=== PATIENT | male | born 1960 | race Caucasian/White ===

== ENCOUNTER 2024-11-21 21:08 | Inpatient (IN) | payer MEDICARE, SELFPAY ==
[2024-11-21] VITALS (9 sets, daily range): BP systolic 102–137; BP diastolic 47–67; BMI 26.2; BMI 26.3
--- NOTE | 2024-11-21 16:15 | EDRN ---
Dr. Quiroga in room w/ pt at this time.
--- NOTE | 2024-11-21 16:20 | ED.GENMED ---
History of Present Illness
General
Chief Complaint: Abdominal Symptoms
Source: patient
Exam Limitations: none
Time Seen by Provider: 11/21/24 15:56
Nursing documentation reviewed up to this point in time: agreed with
History of Present Illness
History of Present Illness:
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
abdominal x-ray. Patient reports for the last 4 to 5 days, he has had difficulty keeping down liquids and solids and has had increasing abdominal distention and pain in his upper abdomen. The patient reports that he believes the x-ray shows a
possible obstruction. Additionally, the patient reports he has been unable to really eat and drink for a week and believes he is dehydrated. Patient reports he last had chemotherapy 1 week ago. The patient reports that despite taking lactulose
and magnesium citrate, he has had difficulties having a bowel movement. He reports he last had a bowel movement 3 days ago.
Past History
Past History
ED Past Medical History: CAD and Cancer (Stage IV lung cancer)
ED Past Surgical History: Cardiac and Other (Right iliac stent)
Social History
Tobacco: Other
Alcohol: Other
Drug: None
Personal: Single
Living: with family
Employment: Other
Family History
Family History: Other
Review of Systems
Review of Systems
Allergies reviewed?: Yes
All Other Systems: ROS reviewed and negative except as documented in HPI and ROS
Constitutional: Reports fatigue
EENT: Reports no symptoms
Respiratory: Reports no symptoms
Cardiac: Reports no symptoms
ABD/GI: Reports abdominal pain, nausea, constipated and anorexia
: Reports no symptoms
Musculoskeletal: Reports no symptoms
Skin: Reports no symptoms
Neurological: Reports no symptoms
Endocrine: Reports no symptoms
Hematologic/Lymphatic: Reports no symptoms
Psychiatric: Reports no symptoms
Phy Exam
Physical Exam
Physical Exam:
Physical Exam
General: no apparent distress, not acutely ill
Neck: supple. no meningeal signs. normal psoterior pharynx
Heart: s1/s2 regular rate and rhythm, murmur. equal radial pulses.
Lungs: no acute respiratory distress. clear bilaterally
Abdomen: Distended with diminished bowel sounds. Epigastric and right upper abdominal tenderness. No pulsatile mass. No rebound or guarding
Neuro: alert and oriented. no focal neurological deficits
Skin: no rash
Psychiatric: well kept. interactive and cooperative
Extremities: no edema. no calf tenderness. negative homans. good distal pulses
Course
Orders/Labs/Results
Orders:
Orders
11/21/24 16:19
0.9% Sodium Chloride 1000 ml [Nss] 1,000 ml IV BOLUS
11/21/24 16:52
Complete Blood Count/With Diff Urgent
Comprehensive Metabolic Panel Urgent
Lipase Urgent
11/21/24 17:50
CT Abd/pel Without Iv Or Oral Urgent
Comment:
Reason For Exam: upper abdominal pain, constipation
Abnormal Lab Results
11/21/24
16:52
WBC 0.5 L* 10^3/uL
(4.8-10.8)
RBC 3.39 L 10^6/uL
(4.70-6.10)
Hgb 10.7 L g/dL
(13.0-18.0)
Hct 29.9 L %
(39.0-52.0)
MCH 31.6 H pg
(27.0-31.0)
RDW 15.0 H %
(11.5-14.5)
Plt Count 13 L* 10^3/uL
(130-400)
Absolute Neuts (auto) 0.3 L* 10^3/uL
(1.4-6.5)
Absolute Lymphs (auto) 0.1 L 10^3/uL
(1.2-3.4)
Immature Gran % 6.1 H %
(0-0.5)
Monocytes % 10.2 H %
(1.7-9.3)
Sodium 127 L mmol/L
(135-145)
Potassium 5.5 H mmol/L
(3.5-5.1)
Carbon Dioxide 18 L mmol/L
(22-30)
BUN 123 H* mg/dl
(9-20)
Creatinine 3.0 H mg/dL
(0.7-1.3)
Glucose 152 H mg/dl
(70-99)
Calcium 8.2 L mg/dl
(8.4-10.2)
Total Bilirubin 6.6 H mg/dl
(0.2-1.3)
ALT 127 H U/L
(0-50)
Total Protein 5.7 L g/dl
(6.3-8.2)
11/21/24 16:52
11/21/24 16:52
Vital Signs
Initial and Last Documented VS:
Initial Vital Signs
Temp Pulse Resp BP Pulse Ox
97.6 F 77 16 137/62 97
11/21/24 15:13 11/21/24 15:13 11/21/24 15:13 11/21/24 15:13 11/21/24 15:13
Last Documented Vital Signs
Temp Pulse Resp BP Pulse Ox
97.6 F 78 16 117/53 93
11/21/24 15:13 11/21/24 19:15 11/21/24 19:15 11/21/24 19:15 11/21/24 19:16
MDM/Problems Addressed
Differential Diagnosis Includes:
Partial bowel obstruction, complete bowel obstruction, acute cholecystitis, acute pancreatitis, acute hyponatremia
MDM/Problems Addressed:
Patient presents with acute constipation and abdominal pain
Chronic conditions affecting care:
History of stage IV liver cancer
Acute Exacerbation and/or Progression of Chronic Illness:
Patient may have acute bowel obstruction due to worsening mets in abdomen due to lung cancer
Acute Exacerbation and/or Progression of Chronic Illness: Cancer
*Radiology
Radiology exam reviewed: radiology read reviewed
*Pulse Oximetry
Patient hypoxic: no
*EKG
Interpreted by ED Provider?: NA
*Maritime Guard Interpretation
Rate: Maritime Guard- N/A
*Critical Care Note
Total Time (30-74mins, 75-104mins- exclusive of procedures): Not Applicable
Data Reviewed
Source: patient and family (Niece who is at the bedside)
Patient Management
Social determinants of health affecting care: Living situation and Strong social support
Discussion with other providers: Hospitalist
ED Attending Note
-
Portions of this chart may have been created with voice recognition software.� Occasional wrong word or��sound alike� substitutions may have occurred due to the inherent limitations of voice recognition software.
Discharge Plan
Departure
Patient Disposition: Admit
Date of Disposition: 11/21/24
Time of Disposition: 19:50
Admit to: Med/Surg
Presentation/result/management discussed w/ accepting MD/DO: Hospitalist
Patient with high blood pressure during this ER visit?: Yes
Condition: Fair
Covid-19: Not Applicable
Discharge Problem:
Acute upper abdominal pain, Acute dehydration, Acute hyponatremia, Acute neutropenia
Prescriptions:
No Action
metoprolol succinate [Toprol XL] 50 mg Tablet Extended Release 24 Hr
50 mg PO BID
prochlorperazine maleate [Compazine] 10 mg Tablet
10 mg PO BIDPRN PRN (Reason: nausea)
aspirin 81 mg Tablet,Delayed Release (Dr/Ec)
81 mg PO DAILY
levothyroxine [Synthroid] 75 mcg Tablet
75 mcg PO DAILY
lorazepam 0.5 mg Tablet
0.5 mg PO BIDPRN PRN (Reason: ANIXETY)
Patient Comments:
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
amlodipine [Norvasc] 10 mg Tablet
10 mg PO QPM
dexamethasone 4 mg Tablet
4 mg PO DIRECTED
Rx Instructions:
STARTING THE DAY OF TREATMENT TAKE 8MG AND THE NEXT 4 DAYS AFTER TREATMENT
ezetimibe [Zetia] 10 mg Tablet
10 mg PO DAILY
lactulose 10 gram/15 mL Solution
20 g PO QPM
Brilinta 60 mg Tablet
60 mg PO BID
magnesium oxide 400 mg magnesium Tablet
400 mg PO DAILY
Referrals:
Jose R Garcia Jr., DO [Family Provider] -
Interventions
Interventions:
*Risk Screen - Suicide Last Done: 11/21/24 16:30
*General Assessment Last Done: 11/21/24 16:27
*Neglect/Abuse Screening Last Done: 11/21/24 16:30
*ED- Fall Risk Assessment Last Done: 11/21/24 16:27
*ED COVID-19 Vaccine History Last Done: 11/21/24 16:27
ZS-[id number]-Vuaewmrqxu Assessment Last Done: 11/21/24 17:11
Discharge Date and Time
Print Language: ALGERIAN
--- NOTE | 2024-11-21 16:42 | EDRN ---
Vat MAINTENANCE MAN paged to access port and draw bloods from that. Port is a power port. Pt has a ID port band on wrist that says its a power port.
[2024-11-21] MEDS: NSS 1000 IV (16:53)
--- NOTE | 2024-11-21 17:13 | EDRN ---
R ACW port accessed by IV VAT RN MIN. Port is power port. Bloods drawn and sent.
[2024-11-21 17:28] LABS: ALT (SGPT) 127 U/L (0-50); AST (SGOT) 58 U/L (17-59); Albumin 3.5 g/dl (3.5-5.0); Alkaline Phosphatase 93 U/L (38-126); Calcium 8.2 mg/dl (8.4-10.2); Carbon Dioxide 18 mmol/L (22-30); Chloride 99 mmol/L (98-107); Estimated Creatinine Clearance 23 ml/min; Glucose 152 mg/dl (70-99); Lipase 222 U/L (23-300); Potassium 5.5 mmol/L (3.5-5.1); Sodium 127 mmol/L (135-145); Total Bilirubin 6.6 mg/dl (0.2-1.3); Total Protein 5.7 g/dl (6.3-8.2); eGFR 22.35
[2024-11-21 17:37] LABS: Blood Urea Nitrogen 123 mg/dl (9-20)
[2024-11-21 17:38] LABS: % Immature Granulocytes 6.1 % (0-0.5); % Lymphocytes 28.6 % (20.5-51.1); % Monocytes 10.2 % (1.7-9.3); % Neutrophils 51.1 % (42.2-75.2); Absolute Lymphocytes 0.1 10^3/uL (1.2-3.4); Absolute Monocytes 0.1 10^3/uL (0.1-0.6); Absolute Neutrophils 0.3 10^3/uL (1.4-6.5); Hematocrit 29.9 % (39.0-52.0); Hemoglobin 10.7 g/dL (13.0-18.0); Mean Corp Hgb Conc. 35.8 g/dL (33.0-37.0); Mean Corpuscular Hgb 31.6 pg (27.0-31.0); Mean Corpuscular Volume 88.2 fL (80.0-94.0); Mean Platelet Volume 9.9 fL (7.4-10.4); Nucleated Red Blood Cells % 0 % (-); Platelet Count 13 10^3/uL (130-400); Red Blood Cell Count 3.39 10^6/uL (4.70-6.10); White Blood Cell Count 0.5 10^3/uL (4.8-10.8)
--- NOTE | 2024-11-21 20:06 | W.PN.UPDATE ---
Update Note
Progress Note Update
Patient seen and condition with GUEST SERVICES AGENT, I agree with the findings and history and physical and I concur with assessment and plan.
Briefly, this is a 64-year-old with past medical history of CAD status post stenting, peripheral arterial disease, hypertension, stage IV metastatic lung cancer with significant distant mets who presents to the emergency department after patient
evaluation showed abnormal blood walk and x-ray concerning for bowel obstruction.
Patient reports several days of inability to tolerate p.o. since last chemo. He reports epigastric pain with any oral intake and has been avoiding foods and liquids. Nausea but no vomiting. Feels constipated and has tried laxatives with one BM.
Reports increased abdominal distention with right upper quadrant abdominal pain. He denies any diarrhea. Patient reports his last chemo was 1 week ago. Denies dysphagia. Denies melena.
Reports chronically elevated bilirubin.
In the Emergency Department he was afebrile, blood pressure was 117/50 with a pulse of 78 and satting 93% on room air. White count was 0.5, hemoglobin was 10.7 and platelet was 13, his sodium was 127 potassium 5.5 bicarb 18, BUN 123 and creatinine
3.0 with a glucose of 152. Total bilirubin was 6.6, ALT 127, alkaline phosphatase and AST was normal. CT a/p w/o contrast showing severe multifocal hepatic metastatic disease, large amount of metastatic right upper quadrant lymphadenopathy,
gallbladder with cholelithiasis and large amount of biliary sludge, no ductal dilation.
Patient presentation w/ epigasatric pain, negative lipase suggests gastritis/dyspepsia possibly chemotherapy induced mucositis. No evidence of bowel obstruction on the CT scan. However picture is limited by lack of contrast. Overall with a BUN
of 193 and a creatinine of 3.0 patient appears to have significant prerenal azotemia. The sodium of 127 reflects hypovolemic hyponatremia given this degree of azotemia.
Abdominal pain - epigastric pain with epigastric tenderness suggests gastritis/dyspepsia more likely. No RUQ discomfort.
- Admit to medsurg
- pain control, IV ppi bid for now and antiemetics
- advance diet as tolerated for now
- trend lfts
Hyponatremia - Hypovolemic hyponatremia suspected. Cannot rule out SIADH. He needs volume resuscitation now.
- bolus with 1 L LR, and 1 L NS
- then IV dextrose 1/2 NS + 75 bicarb at 125 ml/hr afterwards
- follow i/os
- check urine osm and urine sodium
- repeat labs in 6 hours
- consider nephrology consult if no improvement
BESSIE - suspect pre-renal azotemia on some baseline CKD. No urinary obstruction on imaging. Although significant thrombocytopenia, no h/o melena to explain elevated bun
- avoid nephrotoxins
- orthostatics
- fluid resuscitation as above
- continue amlodipine unless orthostatic
- occult stool testing
- ppi ppx as above
Pancytopenia - neutropenia and thrombocytopenia. Recent chemo 1 week ago.
- neutropenic precautions
- no evidence of mucosal or internal bleeding, type and screen but no plt transfusion required
- oncology consultation
DVT PPX - SCDs for now given severe thrombocytopenia
Code status - full code
--- NOTE | 2024-11-21 20:46 | HPS.HSE ---
Family Physician
-
Family Physician: Jose R Garcia
Chief Complaint
-
Epigastric Abdominal Pain
History of Present Illness
Patient is a 64 y/o male past medical history of metastatic lung cancer, ASCVD, hypertension and hypothyroidism who presents with epigastric abdominal pain. Patient reports very poor oral intake due to worsening epigastric pain. He reports only
tolerating a small amount of liquids. Niece at bedside notes increase belching and bloating. Patient reports limited bowel movements and expresses concern about possibly bowel obstruction. He denies fevers, sweats or chills.
Medical History
Past Medical History
Past Medical History: Reports Other
Additional Past Medical History:
Metastatic Lung Cancer (Liver and Bone)
Coronary Artery Disease s/p Cardiac Stent
Peripheral Arterial Disease s/p Right Iliac Stent
Essential Hypertension
Hyperlipidemia
Hypothyroidism
Leukemia
Past Surgical History: Reports None
Social History
Tobacco: Former Smoker
Alcohol: None
Living: Other (Patient is currently staying with his niece in [place])
Family History
Family History: Not pertinent
Allergies / Home Medications
Allergies reflects when Allergies were last updated in [facility].
Home Medications with original date entered in [facility]
Allergy/Medication List:
Allergies
Allergy/AdvReac Type Severity Reaction Status Date / Time
No Known Allergies Allergy Verified 11/21/24 15:20
Home Medications
amlodipine 10 mg tablet (Norvasc) 10 mg PO QPM 11/21/24
aspirin 81 mg tablet,delayed release 81 mg PO DAILY 11/21/24
dexamethasone 4 mg tablet 4 mg PO DIRECTED 11/21/24
ezetimibe 10 mg tablet (Zetia) 10 mg PO DAILY 11/21/24
lactulose 10 gram/15 mL oral solution 20 g PO QPM 11/21/24
levothyroxine 75 mcg tablet (Synthroid) 75 mcg PO DAILY 11/21/24
lorazepam 0.5 mg tablet 0.5 mg PO BIDPRN PRN ANIXETY 11/21/24
magnesium oxide 400 mg PO DAILY 11/21/24
metoprolol succinate 50 mg tablet,extended release 24 hr (Toprol XL) 50 mg PO BID 11/21/24
prochlorperazine maleate 10 mg tablet (Compazine) 10 mg PO BIDPRN PRN nausea 11/21/24
ticagrelor 60 mg tablet (Brilinta) 60 mg PO BID 11/21/24
Review of Systems
-
A 12 point ROS was completed and negative except as noted: Yes
Constitutional: Denies Fever
Respiratory: Denies Cough or Trouble Breathing
Cardiac: Denies Chest Pain or Palpitations
Abdomen/GI: Reports See HPI
Physical Exam
Vital Signs
Vital Signs
Temp Pulse Resp BP Pulse Ox
97.6 F 78 16 117/53 93
11/21/24 15:13 11/21/24 19:15 11/21/24 19:15 11/21/24 19:15 11/21/24 19:16
Physical Exam
General: Well Developed, Comfortable and Conversant
HEENT: NormoCephalic, Anicteric and Atraumatic
Respiratory: Clear and Non Labored Respirations
Cardiac: S1/S2, Regular Rhythm and Murmur
GI: Soft, Tender (Epigastric regions without rebound or guarding) and Other (Protuberant; Hepatomegaly)
Rectal: Deferred by Provider
Musculoskeletal: No Clubbing and No Cyanosis
Skin: Warm and Dry
Neuro: Awake, Alert, Oriented and Nonfocal/grossly intact
Psych: Calm
Laboratory Results
-
11/21/24 16:52
11/21/24 16:52
Laboratory Results
Total Bilirubin 6.6 mg/dl (0.2-1.3) H 04/25/25 16:52
AST 58 U/L (17-59) 11/21/24 16:52
ALT 127 U/L (0-50) H 11/21/24 16:52
Alkaline Phosphatase 93 U/L (38-126) 11/21/24 16:52
Lipase 222 U/L (23-300) 11/21/24 16:52
Data Reviewed
-
CT Scan: Report Reviewed by me
Lab Data: Labs Reviewed by me
Impression/Plan
-
Acute Kidney Injury secondary to poor oral intake
-Continue IVFs
-Recheck labs in AM
Hyponatremia, suspect hypovolemic in setting of poor oral intake, possibly component of SIADH due to lung cancer
-Check urine electrolytes
-Continue IVFs
-Recheck sodium later this evening and in AM
Hyperkalemia
-Patient receiving IVfs
-Recheck potassium later this evening - If remains elevated consider Lokelma
Epigastric Abdominal Pain, possible gastritis
-Add Protonix
-Allow clear liquids - Advance diet as tolerated
Pancytopenia with Neutropenia, and profound Thrombocytopenia
-Consult Oncology
-Continue neutropenic precautions
-Monitor for fevers
-Monitor for bleeding
-Monitor counts closely
Metastatic Lung Cancer (Liver and Bone)
-Last chemotherapy November 14
-Consult Oncology
Coronary Artery Disease s/p Cardiac Stent
Peripheral Arterial Disease s/p Right Iliac Stent
-Continue aspirin and Brilinta
Essential Hypertension
-Continue amlodipine and metoprolol with hold parameters
Hypothyroidism
-Continue Levothyroxine
DVT proph: SCDs
Code Status: Full Code
[2024-11-21] MEDS: LR 1000 IV (20:55)
[2024-11-21 21:34] LABS: Osmolality Serum 317 mOsm/kg (275-300)
[2024-11-21] MEDS: PROTONIX IV 40 MG IV (22:17)
[2024-11-21] MEDS: NSS (PRESERVATIVE FREE) 10 ML IV (22:17)
[2024-11-21] MEDS: SODIUM BICARBONATE 1075 MEQ IV (22:17)
--- NOTE | 2024-11-21 23:59 | PTCARENOTE ---
Pt admitted to [facility] ([id number]) from ED. Pt AAOx3. Port C/D/I, started on IVF and infusing without issues. Pt oriented to room. Call del cid within reach and bed in lowest position.
[2024-11-22 01:14] LABS: Blood Urea Nitrogen 111 mg/dl (9-20); Calcium 7.7 mg/dl (8.4-10.2); Carbon Dioxide 22 mmol/L (22-30); Chloride 104 mmol/L (98-107); Estimated Creatinine Clearance 29 ml/min; Glucose 116 mg/dl (70-99); Potassium 5.5 mmol/L (3.5-5.1); Sodium 130 mmol/L (135-145); eGFR 30.74
[2024-11-22 03:58] LABS: Urine Albumin 1+ (Neg - Trace); Urine Bilirubin Negative (Negative); Urine Character Clear (Clear); Urine Color Yellow; Urine Glucose Negative (Negative); Urine Ketone Negative (Negative); Urine Leukocyte Negative (Negative); Urine Nitrite Negative (Negative); Urine Occult Blood Negative (Negative); Urine Specific Gravity 1.015 (<1.030); Urine Urobilinogen Negative (Neg - 1+)
[2024-11-22 04:00] LABS: Urine Sodium 20 mmol/L (30-90)
[2024-11-22 04:09] LABS: Urine Hyaline Cast 0-2 /LPF (0-2); Urine Red Blood Cell None Seen /HPF (0-2); Urine White Cell 0-2 /HPF (0-5)
[2024-11-22 04:33] LABS: Osmolality Urine 499 mOsm/kg (300-900)
[2024-11-22 06:00] VITALS: BMI 26.9
[2024-11-22 06:22] LABS: Hematocrit 27.6 % (39.0-52.0); Hemoglobin 9.7 g/dL (13.0-18.0); Mean Corp Hgb Conc. 35.1 g/dL (33.0-37.0); Mean Corpuscular Hgb 31.3 pg (27.0-31.0); Platelet Count 10 10^3/uL (130-400); Red Cell Dist. Width 15.2 % (11.5-14.5); White Blood Cell Count 0.3 10^3/uL (4.8-10.8)
[2024-11-22] MEDS: SYNTHROID 75 MCG PO (06:24)
--- NOTE | 2024-11-22 06:29 | CON.ONC ---
Consultation
-
Date Consultation Requested: 11/22/24
Date Consultation Performed: 11/22/24
Requesting Provider: Jammie Knowles
Performing Provider: Reshma
Reason for Consultation: Lung Ca, neutropenia
Impression
Impression
Metastatic SCLC with liver, LN, blastic bone mets
Chemotherapy-induced neutropenia and thrombocytopenia, both severe
BESSIE
Hyponatremia, hypokalemia
Coronary Artery Disease s/p Cardiac Stent
Peripheral Arterial Disease s/p Right Iliac Stent
Plan
Plan
Patient admitted with epigastric pain presumably cancer related although cannot rule out other issues such as gastritis, PUD, etc.
Electrolyte abnormalities possibly combination of dehydration, prerenal azotemia, BESSIE.
Sodium and potassium are improving. Monitor creatinine with hydration.
CT scan reveals pretty extensive metastatic disease burden. CT scan does not unfortunately have comparison as all previous scans done at [facility] and not available.
Regarding low blood counts, this is expected following Zepzelca.
No fever or evidence of infection. No role for antibiotic.
Typically without infection, inpatient G-CSF is not utilized inpatient. I have no way of confirming whether the patient received long-acting G-CSF.
Regarding thrombocytopenia, this does not appear to be causing him any bleeding symptoms but with a platelet count of 10,000 I do recommend platelet transfusion.
This is nonurgent and I will wait for the hospitalist team to schedule this as I saw the patient before getting these results and did not formally get consent.
Continue supportive care, pain control.
Cytopenias themselves are not indication for continued inpatient hospitalization. Once electrolytes and BESSIE are improved, patient can be discharged from Heme Onc perspective.
Prognosis is guarded with what I suspect is small cell lung cancer based on his particular current treatment and typically this is given at least 2nd or 3rd line and based on the burden of his disease seen on CT imaging which seems to be extensive.
Not appropriate for me to have a goals of care conversation currently as we are not primarily his oncology team as symptoms may be treatment related. With that said, he appears to be relatively healthy appearing strong vital signs, and hopefully
his condition will improve after chemotherapy recovery.
He should have goals of care conversations with Dr. Ellis particularly after the CT scan is compared to previous scans at [facility] particularly if he has proven progression of disease based on imaging.
There is [facility] because he is currently staying with his niece he lives in [place]. Typically he lives in [place] and gets his care at [facility] by Dr. Gilma Ellis and her team.
Patient History
History of Present Illness
CC: Epigastric Abdominal Pain
Heme-onc consult for lung cancer and severe cytopenias from chemotherapy
HPI: 64 y/o male follows at [facility] with metastatic small cell lung cancer on Zepzelca (lurbinectedin) last treatment Tuesday 11/14 who presents with epigastric abdominal pain and associated poor oral intake due to worsening epigastric pain. Increase
belching and bloating. Primary oncologist is Gilma Ellis MD but patient sees her BROACHER mostly. He lives in [facility] but is staying with his niece in [place]. He thought all the [facility] records would be available with the hospital ownership
change. No prior imaging for comparison available for comp. No fevers or chills. No history of unexpected bleeding.
Past-Medical/Surgical History
PMH:
Metastatic Lung Cancer small cell with liver and bone mets
Coronary Artery Disease s/p Cardiac Stent
Peripheral Arterial Disease s/p Right Iliac Stent
Essential Hypertension
Hyperlipidemia
Hypothyroidism
Leukemia
Past Surgical History: Reports None
Social History
Tobacco: Former Smoker
Alcohol: None
Living: Other (Patient is currently staying with his niece in [place])
Family History
Patient Medication
�Medication �Instructions �Recorded �Confirmed �Last Taken �Type
amlodipine 10 mg tablet (Norvasc) 10 mg PO QPM 11/21/24 11/21/24 11/19/24 History
aspirin 81 mg tablet,delayed 81 mg PO DAILY 11/21/24 11/21/24 11/20/24 History
release
dexamethasone 4 mg tablet 4 mg PO DIRECTED 11/21/24 11/21/24 Unknown History
ezetimibe 10 mg tablet (Zetia) 10 mg PO DAILY 11/21/24 11/21/24 11/20/24 History
lactulose 10 gram/15 mL oral 20 g PO QPM 11/21/24 11/21/24 11/20/24 History
solution
levothyroxine 75 mcg tablet 75 mcg PO DAILY 11/21/24 11/21/24 11/21/24 History
(Synthroid)
lorazepam 0.5 mg tablet 0.5 mg PO BIDPRN PRN ANIXETY 11/21/24 11/21/24 Unknown History
magnesium oxide 400 mg PO DAILY 11/21/24 11/21/24 11/20/24 History
metoprolol succinate 50 mg 50 mg PO BID 11/21/24 11/21/24 11/20/24 History
tablet,extended release 24 hr
(Toprol XL)
prochlorperazine maleate 10 mg 10 mg PO BIDPRN PRN nausea 11/21/24 11/21/24 Unknown History
tablet (Compazine)
ticagrelor 60 mg tablet (Brilinta) 60 mg PO BID 11/21/24 11/21/24 11/20/24 History
Active Medications
Generic Name Dose Route Start Last Admin
Trade Name Freq PRN Reason Stop Dose Admin
Acetaminophen 650 mg 11/21/24 21:44
Acetaminophen 325 Mg Tablet PO 12/19/24 21:43
Q4HPRN PRN
mild pain/ fever>100.5F
Amlodipine Besylate 10 mg 11/22/24 18:00
Amlodipine 10 Mg Tablet PO 12/20/24 17:59
QPM JUSTICE
Aspirin 81 mg 11/22/24 08:00
Aspirin 81 Mg (Enteric Coated) Tablet PO 12/20/24 07:59
DAILY JUSTICE
Heparin Sodium (Porcine) 500 unit 11/22/24 01:00
Heparin Flush Pf (100 Unit/Ml) 5 Ml Syringe IV 12/20/24 00:59
PER PROTOCOL JUSTICE
Sodium Bicarbonate 75 meq/ 1,075 mls @ 100 mls/hr 11/21/24 21:44 11/21/24 22:17
Sodium Chloride IV 1,075 mls
.[id number] JUSTICE Administration
Lactulose 20 grams 11/22/24 18:00
Lactulose Solution (20 Grams/30 Ml) 30 Ml Cup PO 12/20/24 17:59
QPM JUSTICE
Levothyroxine Sodium 75 mcg 11/22/24 06:00 11/22/24 06:24
Levothyroxine 75 Mcg Tablet PO 12/20/24 05:59 75 mcg
DAILY @ 0600 JUSTICE Administration
Lorazepam 0.5 mg 11/21/24 21:44
Lorazepam 0.5 Mg Tablet PO 12/19/24 21:43
BIDPRN PRN
ANIXETY
Metoprolol Succinate 50 mg 11/22/24 08:00
Metoprolol 50 Mg Extended Release Tablet PO 12/20/24 07:59
BID JUSTICE
Ondansetron HCl 4 mg 11/21/24 21:44
Ondansetron 4 Mg/2 Ml Vial IV 12/19/24 21:43
Q6HPRN PRN
NAUSEA/VOMITING
Pantoprazole Sodium 40 mg 11/21/24 21:44 11/21/24 22:17
Pantoprazole Sodium 40 Mg/10 Ml Vial IV 12/19/24 21:43 40 mg
BID JUSTICE Administration
Sodium Chloride 0 flush 11/21/24 22:00
Sodium Chloride 0.9% (Flush) Syringe IV 12/19/24 21:59
PER PROTOCOL JUSTICE
Sodium Chloride 10 ml 11/21/24 22:00 11/21/24 22:17
Sodium Chloride 0.9% (Preservative Free) 10 Ml Vial IV 12/19/24 21:59 10 ml
BID JUSTICE Administration
Ticagrelor 60 mg 11/22/24 08:00
Ticagrelor (Brilinta) 60 Mg Tablet PO 12/20/24 07:59
BID JUSTICE
Physical Exam
-
General: Well Developed, Well Nourished, No Apparent Distress and Comfortable; Negative Respiratory Distress
HEENT: Negative Jaundice
Cardiology: Normal Sinus Rhythm, S1 and S2
Pulmonary: Clear
GI: Soft
Musculoskeletal: No Clubbing, No Cyanosis and No Edema
Extremities: No C/C/E
Neurology: Non Focal
Skin: Warm
Hematologic / Lymphatic: No Lymphadenopathy
Psych: Calm
Labs
Lab Results
WBC 0.3 10^3/uL (4.8-10.8) L* 11/22/24 06:03
RBC 3.10 10^6/uL (4.70-6.10) L 11/22/24 06:03
Hgb 9.7 g/dL (13.0-18.0) L 11/22/24 06:03
Hct 27.6 % (39.0-52.0) L 11/22/24 06:03
MCV 89.0 fL (80.0-94.0) 11/22/24 06:03
MCH 31.3 pg (27.0-31.0) H 11/22/24 06:03
MCHC 35.1 g/dL (33.0-37.0) 11/22/24 06:03
RDW 15.2 % (11.5-14.5) H 11/22/24 06:03
Plt Count 10 10^3/uL (130-400) L* D 11/22/24 06:03
MPV Not Reportable 11/22/24 06:03
Abs Immat Gran (auto) 0.0 10^3/uL (0-0.05) 11/21/24 16:52
Absolute Neuts (auto) 0.3 10^3/uL (1.4-6.5) L* 11/21/24 16:52
Absolute Lymphs (auto) 0.1 10^3/uL (1.2-3.4) L 11/21/24 16:52
Absolute Monos (auto) 0.1 10^3/uL (0.1-0.6) 11/21/24 16:52
Absolute Eos (auto) 0.0 10^3/uL (0-0.7) 11/21/24 16:52
Absolute Basos (auto) 0.0 10^3/uL (0-0.2) 11/21/24 16:52
Immature Gran % 6.1 % (0-0.5) H 11/21/24 16:52
Neutrophils % 51.1 % (42.2-75.2) 11/21/24 16:52
Lymphocytes % 28.6 % (20.5-51.1) 11/21/24 16:52
Monocytes % 10.2 % (1.7-9.3) H 11/21/24 16:52
Eosinophils % 2.0 % (0-6) 11/21/24 16:52
Basophils % 2.0 % (0-2) 11/21/24 16:52
Creatinine 2.3 mg/dL (0.7-1.3) H 11/22/24 00:47

Patient Name: FELA YOUSSEF
: 1960
Unit Number: [id number]
Age/Sex: 64/M
Patient
Location: [facility]
Order Provider: Melinda Quiroga MD
Exam Service Date: 11/21/24

PROCEDURE: CT Abdomen and Pelvis without IV Contrast
CLINICAL INDICATION: Epigastric upper abdominal pain. Vomiting. Constipation. Leukemia. Metastatic lung cancer. Decreased appetite.
TECHNIQUE: A CT examination of the abdomen and pelvis was performed without intravenous contrast. Oral contrast was not administered. Coronal and sagittal reformatted images were obtained. Automatic exposure control radiation dose reduction
technology was utilized.
COMPARISON: None available.
FINDINGS:
CHEST: The heart is normal in size. There is severe calcific atherosclerotic plaque in the coronary arteries. There is moderate calcific atherosclerotic plaque in the descending thoracic aorta. There is no pericardial effusion. There are no pleural
effusions. There is a 2.2 x 2.4 x 1.4 cm lobular shaped soft tissue mass in the right lateral pericardial fat pad which is likely latha metastatic disease. There is a thick band of scarring or subsegmental atelectasis in the medial segment of the
right middle lobe. There is a minimal amount of subsegmental atelectasis or scarring in the posterior basilar segment of the right lower lobe.
ABDOMEN: There is a small amount of right upper quadrant perihepatic ascites. The right lobe of the liver appears normal in size measuring 16.6 cm in length. There are large number of low-attenuation metastases diffusely distributed throughout the
liver measuring up to 5.9 x 5.9 cm in size in the posterior segment of the right lobe. There is a large amount of metastatic lymphadenopathy in the giorgi hepatis and portacaval regions. There is a moderate amount of metastatic retroperitoneal
lymphadenopathy.
There is no abnormal biliary dilatation. The gallbladder is filled with sludge and cholelithiasis. There is atrophy of the pancreatic tail.
There is very severe calcific atherosclerotic plaque in the abdominal aorta. There is very severe calcific atherosclerotic plaque in the common iliac, external iliac, common femoral arteries. There is greater than 70% diameter stenosis in the left
common iliac artery caused by severe calcific atherosclerotic plaque.
The adrenal glands appear normal. There is mild bilateral renal cortical volume loss. There is no hydronephrosis in either kidney. There is a 1.7 cm cyst exophytic from the posterior cortex of the midpole the right kidney.
There is mild circumferential wall thickening in the distal esophagus. There is a moderate amount of circumferential wall thickening throughout the duodenum and proximal jejunal small bowel loops. There is no pneumoperitoneum.
PELVIS: There is no abnormal small bowel wall thickening or distention. There is no abnormal colonic distention. There is mild circumferential wall thickening throughout the rectum. There is a minimal amount of peritoneal fluid in the paracolic
gutters. There is a small amount of peritoneal fluid in the pelvis.
The prostate gland is mildly enlarged. The seminal vesicles appear normal. The urinary bladder is mildly distended. There is mild diffuse thickening of the wall of the urinary bladder. There is no pelvic lymphadenopathy.
SKELETON: The T12 ribs are hypoplastic. The L5 vertebral segment is sacralized. There are blastic osseous metastases within multiple thoracic and lumbar vertebral bodies, the largest in the T9 and L1 vertebral bodies. There is mild multilevel
discogenic degenerative disease in the lumbar spine. There is moderate right-sided facet joint arthrosis at L4/L5. There is moderate bilateral osteoarthritis of the sacroiliac joints. There is mild bilateral osteoarthritis of the hips. There are
small sclerotic osseous metastases throughout the pelvic bones.
IMPRESSION:
1. SEVERE MULTIFOCAL HEPATIC METASTATIC DISEASE.
2. Large amount of metastatic right upper quadrant lymphadenopathy.
3. Moderate metastatic retroperitoneal lymphadenopathy.
4. Small volume of ascites.
5. Severe calcific atherosclerotic plaque in the abdominal aorta, iliac, and femoral arteries.
6. Mild chronic bilateral renal disease.
7. Mildly enlarged prostate gland.
8. Multifocal blastic osseous metastatic disease.
9. Severe calcific atherosclerotic plaque in the coronary arteries.
10. 2.4 cm latha metastasis in the right pericardial fat pad.
Electronically signed by Nacho Garcia MD, 11/21/2024 7:19 PM
[employer] Dose Report: Up-to-date CT equipment and radiation dose reduction techniques were employed. CTDIvol: 9.9 mGy. DLP: 542 mGy-cm.
Dictated By: Nacho Garcia MD
Dictated Date & Time: 11/21/241905
Signed/Co-Signer By: Nacho Garcia MD /
Signed/Co-Signer Date & Time: 11/21/241918 /
Vital Signs
Vital Signs
Temp Pulse Resp BP Pulse Ox
98.7 F 73 20 107/47 98
11/21/24 23:00 11/21/24 23:00 11/21/24 23:00 11/21/24 23:00 11/21/24 23:00
[2024-11-22 06:31] LABS: ALT (SGPT) 99 U/L (0-50); AST (SGOT) 52 U/L (17-59); Albumin 2.9 g/dl (3.5-5.0); Alkaline Phosphatase 77 U/L (38-126); Blood Urea Nitrogen 106 mg/dl (9-20); Calcium 7.7 mg/dl (8.4-10.2); Carbon Dioxide 23 mmol/L (22-30); Chloride 106 mmol/L (98-107); Direct Bilirubin 4.2 mg/dl (0.0-0.4); Estimated Creatinine Clearance 31 ml/min; Glucose 88 mg/dl (70-99); Magnesium 3.5 mg/dl (1.6-2.3); Potassium 5.2 mmol/L (3.5-5.1); Sodium 134 mmol/L (135-145); Total Bilirubin 6.8 mg/dl (0.2-1.3); eGFR 32.43
[2024-11-22] MEDS: BRILINTA 60 MG PO (08:52)
[2024-11-22] MEDS: TOPROL XL PO (08:52)
[2024-11-22] MEDS: ASPIR LOW (ENTERIC COATED) 81 MG PO (08:52)
[2024-11-22] MEDS: PROTONIX IV 40 MG IV (08:52)
[2024-11-22] MEDS: NSS (PRESERVATIVE FREE) 10 ML IV (08:52)
[2024-11-22] MEDS: SODIUM BICARBONATE 1075 MEQ IV ×2 (08:53→19:38)
[2024-11-22 08:56] VITALS: BP 105/60
--- NOTE | 2024-11-22 12:12 | W.PN.HOSP.TC ---
Today's Communication/Plan
-
Will ask nephrology for input
Platelet transfusion
Continue with neutropenic precaution
Continue fall precaution
Advance to full liquids
Hold antiplatelet agents
Hold PPI
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
Assessment / Plan
Assessment / Plan
Acute Kidney Injury likely multifactorial decreased p.o. intake versus unclear if related to chemotherapy (zepzelca), hypotension
Metabolic acidosis
- Patient creatinine was 1 on 11/14/2024. Creatinine was 2.68 on outpatient lab based on patient portal.
- BUN/creatinine with mild improvement
- No hydronephrosis noted on the CAT scan
- Check urine eosinophils
- Elevated cr is known risk factor w/ zepzelca
- Nephrology input
Hyponatremia, suspect hypovolemic in setting of poor oral intake, possibly component of SIADH due to lung cancer
-Na is improving -134
Hyperkalemia
-downtrending.
Epigastric Abdominal Pain, possible gastritis versus pain related to severe lymphadenopathy
- DC Protonix with severe thrombocytopenia and switch to Pepcid
- Advance to full liquids and monitor. Advance as tolerated.
Pancytopenia with Neutropenia, and profound Thrombocytopenia
-Consult Oncology
-Continue neutropenic precautions
-Monitor for fevers
-Monitor for bleeding
-Monitor counts closely
-Of note patient in the past had severe thrombocytopenia and his antiplatelet agents were held for some period of time. Patient has received blood transfusion and platelet transfusion in the past.
-Will order 1 unit of platelet transfusion
-Fall precautions
Metastatic Lung Cancer (Liver and Bone) likely stage IV
-Last chemotherapy November 14
-Consult Oncology
Coronary Artery Disease s/p Cardiac Stent
Peripheral Arterial Disease s/p Right Iliac Stent
- Hold aspirin and Brilinta as risk outweighs benefits. Per patient last cardiac stent was 5 to 6 years ago
- This was discussed with patient and patient niece who both stated that patient had antiplatelet agent held for quite some time during hospitalization at [facility]. Both agreed and were amenable to holding antiplatelet agents with severe
thrombocytopenia.
Transaminitis and bilirubin elevated likely secondary to malignancy and metastasis
- Monitor labs for now. Currently AO x 3. CT scan with liver metastasis noted. There is also a large amount of metastasis and lymphadenopathy in the giorgi hepatis and portacaval region. There is no abnormal biliary dilatation. Gallbladder is
filled with sludge and cholelithiasis.
Essential Hypertension
-Continue amlodipine and metoprolol with hold parameters
Hypothyroidism
-Continue Levothyroxine
DVT proph: SCDs in the setting of severe thrombocytopenia
Code Status: Full Code
Discussed with patient tammy Guaman over the phone in details. Did offer them transfer to [facility] as patient primary oncologist at [facility] however patient and niece would like to continue care here for now.
Anticipated Discharge: > 48 hours
Subjective/Interval History
-
Date of Service: November 22, 2024
states feeling better compared to yesterday
was able to tolerate some liquid this morning
some epigastric discomfort
Objective Data
-
Labs:
Laboratory Results
11/22/24 11/22/24
00:47 06:03
WBC 0.3 L*
Hgb 9.7 L
Hct 27.6 L
Plt Count 10 L* D
Sodium 130 L 134 L
Potassium 5.5 H 5.2 H
Chloride 104 106
Carbon Dioxide 22 23
BUN 111 H* 106 H*
Creatinine 2.3 H 2.2 H
Glucose 116 H 88
Calcium 7.7 L 7.7 L
Total Bilirubin 6.8 H
AST 52
ALT 99 H
Alkaline Phosphatase 77
Vital Signs:
Vital Signs
Temp Pulse Resp BP Pulse Ox
98.2 F 85 20 105/60 95
11/22/24 08:56 11/22/24 08:56 11/22/24 08:56 11/22/24 08:56 11/22/24 08:56
I&O
11/21/24 11/22/24 11/23/24
06:59 06:59 06:59
Output Total 900 / 900
Balance -900 / -900
Physical Exam
-
General: Well Developed and No Apparent Distress
HEENT: Normocephalic, Atraumatic and Moist Mucous Membranes
Respiratory: Clear to Auscultation
Cardiac: Regular Rhythm and S1/S2; Negative Murmur, Rub or Gallop
GI: Soft, Nontender, Normal Bowel Sounds and Distended; Negative Organomegaly
Rectal: Deferred by Provider
Musculoskeletal: No Clubbing, No Cyanosis and No Edema
Skin: Jaundice; Negative Rash
Neuro: Awake, Alert, Oriented, AO x 3, No Motor Deficits and Nonfocal/Grossly Intact
Psych: Calm
Data Reviewed
-
Total Time Spent with Patient (in minutes): 65
[2024-11-22 12:16] VITALS: BP 109/61
[2024-11-22 12:41] VITALS: BP 109/61
[2024-11-22 13:09] VITALS: BP 111/58
[2024-11-22 13:30] VITALS: BP 98/65
[2024-11-22 13:33] LABS: Iron 217 ug/dl (49-181)
[2024-11-22 13:42] LABS: Percent Saturation 82 % (20-50); Total Iron Binding Capacity 264 ug/dl (261-462)
--- NOTE | 2024-11-22 13:43 | W.CON.NEPH ---
Consultation
-
Date/Time Consultation Requested: 11/22/2024 1:00 PM
Date/Time Consultation Performed: 11/22/2024 1:40 PM
Requesting Provider: Dr. Cruz
Performing Provider: Dr. Matute
Reason for Consultation: Acute kidney injury
Medical History
-
Chief Complaint: Acute kidney injury
History of Present Illness:
Patient is a 64-year-old male without previously known kidney disease who presented to the hospital with n epigastric abdominal pain. His p.o. intake has been very poor . the patient has a known history of metastatic lung cancer receiving
chemotherapy with (Zepzelca with last treatment on 11/14). He has a history of hypertension for which she is managed on Norvasc and metoprolol. He is maintained on Synthroid therapy for his history of hypothyroidism. Nephrology was asked to see
the patient for acute renal failure as noted by a creatinine of 2.2 and a BUN of 106. A previous creatinine of 3 was noted on 11/21/2024 however his baseline from earlier in a was apparently around 1.
Past Medical History
Metastatic Lung Cancer (Liver and Bone)
Coronary Artery Disease s/p Cardiac Stent
Peripheral Arterial Disease s/p Right Iliac Stent
Essential Hypertension
Hyperlipidemia
Hypothyroidism
Leukemia
Social History
Tobacco: Former Smoker
Alcohol: None
Drug: None
Living: With Family
Family History
Family History: Not Pertinent
Allergies / Home Medications
Allergy/AdvReac Type Severity Reaction Status Date / Time
No Known Allergies Allergy Verified 11/21/24 15:20
�Medication �Instructions �Recorded �Confirmed �Type
amlodipine 10 mg tablet (Norvasc) 10 mg PO QPM 11/21/24 11/21/24 History
aspirin 81 mg tablet,delayed 81 mg PO DAILY 11/21/24 11/21/24 History
release
dexamethasone 4 mg tablet 4 mg PO DIRECTED 11/21/24 11/21/24 History
ezetimibe 10 mg tablet (Zetia) 10 mg PO DAILY 11/21/24 11/21/24 History
lactulose 10 gram/15 mL oral 20 g PO QPM 11/21/24 11/21/24 History
solution
levothyroxine 75 mcg tablet 75 mcg PO DAILY 11/21/24 11/21/24 History
(Synthroid)
lorazepam 0.5 mg tablet 0.5 mg PO BIDPRN PRN ANIXETY 11/21/24 11/21/24 History
magnesium oxide 400 mg PO DAILY 11/21/24 11/21/24 History
metoprolol succinate 50 mg 50 mg PO BID 11/21/24 11/21/24 History
tablet,extended release 24 hr
(Toprol XL)
prochlorperazine maleate 10 mg 10 mg PO BIDPRN PRN nausea 11/21/24 11/21/24 History
tablet (Compazine)
ticagrelor 60 mg tablet (Brilinta) 60 mg PO BID 11/21/24 11/21/24 History
Review of Systems
-
All other systems: Negative unless noted
Abdomen/GI: Abdominal Pain and Other (Decreased oral intake only tolerating fluids)
Physical Exam
Vital Signs
Vital Signs
Temp Pulse Resp BP Pulse Ox
97.6 F 91 20 98/65 96
11/22/24 13:30 11/22/24 13:30 11/22/24 13:30 11/22/24 13:30 11/22/24 12:16
Lab Results
11/22/24 06:03
11/22/24 06:03
WBC 0.3 10^3/uL (4.8-10.8) L* 11/22/24 06:03
RBC 3.10 10^6/uL (4.70-6.10) L 11/22/24 06:03
Hgb 9.7 g/dL (13.0-18.0) L 11/22/24 06:03
Hct 27.6 % (39.0-52.0) L 11/22/24 06:03
Plt Count 10 10^3/uL (130-400) L* D 11/22/24 06:03
Sodium 134 mmol/L (135-145) L 11/22/24 06:03
Potassium 5.2 mmol/L (3.5-5.1) H 11/22/24 06:03
Chloride 106 mmol/L (98-107) 11/22/24 06:03
Carbon Dioxide 23 mmol/L (22-30) 11/22/24 06:03
BUN 106 mg/dl (9-20) H* 11/22/24 06:03
Creatinine 2.2 mg/dL (0.7-1.3) H 11/22/24 06:03
eGFR 32.43 11/22/24 06:03
Glucose 88 mg/dl (70-99) 11/22/24 06:03
Calcium 7.7 mg/dl (8.4-10.2) L 11/22/24 06:03
Albumin 2.9 g/dl (3.5-5.0) L 11/22/24 06:03
Physical Exam
General: AOx3, Nontoxic , NAD
HEENT: PERRL, EOMI, Anicteric, Conjunctivae Clear, Ear/Nose Intact, Hearing Normal, Oropharynx Clear/Moist, Dentition Intact, Facial Symmetry, Neck Supple, Neck: Trachea Midline, No JVD and No Thyromegaly, no Bruits
Respiratory: Clear to auscultation bilaterally with normal lung exersion
Cardiac: S1/S2 and Regular Rate/Rhythm
Breast: Deferred by me
Abdomen: Soft, mild tenderness in the midepigastric region, distended, Normal Bowel Sounds and No Hepatosplenomegaly
Rectal: Deferred by Provider
Genito-urinary: No Costovertebral Tenderness
Extremities: No Clubbing, No Cyanosis and No Edema
Skin: No Rash or open lesions
Neuro: Nonfocal/Grossly Intact, CN II-XII (Intact) and Strength (Musculoskeletal exam 5 out of 5 both upper and lower extremities)
Hematologic/Lymphatic: No Cervical Lymphadenopathy, No Submandibular Lymphadenopathy and No Supraclavicular Lymphadenopathy
Psych: Mood/afflect pleasant, Insight/judgement good and Appropriate
Vascular: plus 2 pedal and radial pulses
Data Reviewed
-
CT Scan: Image Personally Visualized and interpreted (No hydronephrosis but extensive metastatic disease burden)
Medical Tests (Nuc Med, Echo etc): Other (EKG review 69 bpm sinus rhythm with PAC by personal review)
Labs: Labs Reviewed by me (CBC BMP)
Assessment/Plan
-
Impression:
Acute Kidney Injury
Hyponatremia
Hyperkalemia
Epigastric Abdominal Pain, possible gastritis
Pancytopenia with Neutropenia, and profound Thrombocytopenia
Metastatic Lung Cancer (Liver and Bone)
Coronary Artery Disease s/p Cardiac Stent
Peripheral Arterial Disease s/p Right Iliac Stent
Essential Hypertension
Hypothyroidism
Plan:
Acute kidney injury:
- Possibly related to chemotherapy agents
-No other recent nephrotoxic exposures per review of history
- No obstructive uropathy per review of CAT scan,would still check PVR bladder scan to assess for retention
- Patient has been hemodynamically labile so we will discontinue amlodipine and maintain IV fluids
- Urine eosinophils obtained by primary team for possible underlying acute interstitial nephritis
- UA notes 1+ albumin no blood and other cobos bland
- Azotemia likely exacerbated by steroid administration that patient was taking post chemo
[2024-11-22 14:40] LABS: Folate 7.2 ng/ml (2.76-20); Vitamin B12 807 pg/ml (239-931)
[2024-11-22 17:36] VITALS: BP 137/68
[2024-11-22] MEDS: DUPHALAC/CHRONULAC PO (17:46)
[2024-11-22] MEDS: TOPROL XL 50 MG PO (20:43)
[2024-11-22 20:47] LABS: Body Fluid for Eosinophils No Eosinophils seen
[2024-11-23] VITALS (7 sets, daily range): BP systolic 99–132; BP diastolic 50–72; BMI 26.9
[2024-11-23] MEDS: SYNTHROID 75 MCG PO (05:11)
[2024-11-23] MEDS: SODIUM BICARBONATE 1075 MEQ IV ×2 (05:12→16:42)
[2024-11-23 08:34] LABS: ALT (SGPT) 84 U/L (0-50); AST (SGOT) 52 U/L (17-59); Albumin 2.9 g/dl (3.5-5.0); Alkaline Phosphatase 100 U/L (38-126); Blood Urea Nitrogen 62 mg/dl (9-20); Calcium 7.5 mg/dl (8.4-10.2); Carbon Dioxide 25 mmol/L (22-30); Chloride 104 mmol/L (98-107); Estimated Creatinine Clearance 45 ml/min; Glucose 103 mg/dl (70-99); Potassium 4.3 mmol/L (3.5-5.1); Sodium 136 mmol/L (135-145); eGFR 51.35
[2024-11-23 08:37] LABS: % Lymphocytes 59.4 % (20.5-51.1); % Monocytes 15.6 % (1.7-9.3); Absolute Lymphocytes 0.2 10^3/uL (1.2-3.4); Absolute Monocytes 0.1 10^3/uL (0.1-0.6); Absolute Neutrophils 0.1 10^3/uL (1.4-6.5); Hematocrit 25.5 % (39.0-52.0); Hemoglobin 8.9 g/dL (13.0-18.0); Mean Corp Hgb Conc. 34.9 g/dL (33.0-37.0); Mean Corpuscular Hgb 31.3 pg (27.0-31.0); Mean Corpuscular Volume 89.8 fL (80.0-94.0); Nucleated Red Blood Cells % 0 % (-); Platelet Count 6 10^3/uL (130-400); Red Blood Cell Count 2.84 10^6/uL (4.70-6.10); Red Cell Dist. Width 15.4 % (11.5-14.5); White Blood Cell Count 0.3 10^3/uL (4.8-10.8)
[2024-11-23] MEDS: TOPROL XL PO ×2 (09:22→20:26)
[2024-11-23] MEDS: PEPCID 20 MG IV (09:23)
[2024-11-23] MEDS: NSS (PRESERVATIVE FREE) 8 ML IV (09:23)
--- NOTE | 2024-11-23 10:12 | W.PN.HOSP.TC ---
Addendum entered and electronically signed by Raymundo Cruz MD 11/23/24 13:26:
update niece at bedside in details.
Addendum entered and electronically signed by Raymundo Cruz MD 11/23/24 10:30:
General: Well Developed and No Apparent Distress
HEENT: Normocephalic, Atraumatic and Moist Mucous Membranes
Respiratory: Clear to Auscultation, port noted
Cardiac: Regular Rhythm and S1/S2;
GI: Soft, Nontender, Normal Bowel Sounds and Distended; able to palpapte LN epigastric region
Rectal: Deferred by Provider
Musculoskeletal: No Clubbing, No Cyanosis and No Edema
Skin: Jaundice; Negative Rash
Neuro: Awake, Alert, Oriented, AO x 3, No Motor Deficits and Nonfocal/Grossly Intact
Psych: Calm
Original Note:
Today's Communication/Plan
-
transfuse platelet
fall precautions
trend labs
neutropenic precautions
monitor diet tolerance
Cr improving
Assessment / Plan
Assessment / Plan
Acute Kidney Injury likely multifactorial decreased p.o. intake versus unclear if related to chemotherapy (zepzelca), hypotension
Metabolic acidosis
- Patient creatinine was 1 on 11/14/2024. Creatinine was 2.68 on outpatient lab based on patient portal.
- BUN/creatinine with mild improvement-continues to downtrend.
- No hydronephrosis noted on the CAT scan
- Check urine eosinophils-none found,
- Elevated cr is known risk factor w/ zepzelca
- Nephrology input
Hyponatremia, suspect hypovolemic in setting of poor oral intake, possibly component of SIADH due to lung cancer
-resolved.
Hyperkalemia
-downtrended
Epigastric Abdominal Pain, possible gastritis versus pain related to severe lymphadenopathy
- DC Protonix with severe thrombocytopenia and switch to Pepcid
- monitor for diet tolerance. Diet advanced.
Pancytopenia with severe Neutropenia, and profound Thrombocytopenia
-Consulted Oncology
-Continue neutropenic precautions
-Monitor for fevers
-Monitor for bleeding
-Monitor counts closely
-Of note patient in the past had severe thrombocytopenia and his antiplatelet agents were held for some period of time. Patient has received blood transfusion and platelet transfusion in the past.
-Platelets is 6K. Will order additional unit of platelets for today.
-Fall precautions
-records requested from [facility] oncology
Metastatic Lung Cancer (Liver and Bone) likely stage IV
-Last chemotherapy November 14
-Consult Oncology
Coronary Artery Disease s/p Cardiac Stent
Peripheral Arterial Disease s/p Right Iliac Stent
- Hold aspirin and Brilinta as risk outweighs benefits. Per patient last cardiac stent was 5 to 6 years ago
- This was discussed with patient and patient niece who both stated that patient had antiplatelet agent held for quite some time during hospitalization at [facility]. Both agreed and were amenable to holding antiplatelet agents with severe
thrombocytopenia.
Transaminitis and bilirubin elevated likely secondary to malignancy and metastasis
- Monitor labs for now. Currently AO x 3. CT scan with liver metastasis noted. There is also a large amount of metastasis and lymphadenopathy in the giorgi hepatis and portacaval region. There is no abnormal biliary dilatation. Gallbladder is
filled with sludge and cholelithiasis.
Essential Hypertension
-Continue amlodipine and metoprolol with hold parameters
Hypothyroidism
-Continue Levothyroxine
DVT proph: SCDs in the setting of severe thrombocytopenia
Code Status: Full Code
Did offer them transfer to [facility] as patient primary oncologist at [facility] however patient and niece would like to continue care here for now.
Anticipated Discharge: > 48 hours
Subjective/Interval History
-
Date of Service: November 23, 2024
denies abd pain
Denies any nausea vomiting
States appetite is slowly improving
Objective Data
-
Labs:
Laboratory Results
11/23/24
07:58
WBC 0.3 L*
Hgb 8.9 L
Hct 25.5 L
Plt Count 6 L* D
Sodium 136
Potassium 4.3
Chloride 104
Carbon Dioxide 25
BUN 62 H
Creatinine 1.5 H
Glucose 103 H
Calcium 7.5 L
Total Bilirubin 7.0 H
AST 52
ALT 84 H
Alkaline Phosphatase 100
Vital Signs:
Vital Signs
Temp Pulse Resp BP Pulse Ox
99.2 F 85 21 106/50 95
11/23/24 08:56 11/23/24 09:22 11/23/24 08:56 11/23/24 09:22 11/23/24 08:56
I&O
11/22/24 11/23/24 11/24/24
06:59 06:59 06:59
Intake Total 3880 / 3880
Output Total 900 / 900 2625 / 2625
Balance -900 / -900 1255 / 1255
Data Reviewed
-
Total Time Spent with Patient (in minutes): 55
--- NOTE | 2024-11-23 11:26 | W.PN.NEPH.PH ---
Today's Communication / Plan
-
Maintain IV fluids another day
Follow BMP
Holding amlodipine
Assessment/Plan
-
Impression:
Acute Kidney Injury
Hyponatremia
Hyperkalemia
Epigastric Abdominal Pain, possible gastritis
Pancytopenia with Neutropenia, and profound Thrombocytopenia
Metastatic Lung Cancer (Liver and Bone)
Coronary Artery Disease s/p Cardiac Stent
Peripheral Arterial Disease s/p Right Iliac Stent
Essential Hypertension
Hypothyroidism
Plan:
Acute kidney injury:
-Creatinine with continued improvement to 1.5 today grossly nonoliguric
- Possibly related to chemotherapy agents
-No other recent nephrotoxic exposures per review of history
- No obstructive uropathy per review of CAT scan,would still check PVR bladder scan to assess for retention
- Patient has been hemodynamically labile so we will discontinue amlodipine and maintain IV fluids
- Urine eosinophils negative by primary team for possible underlying acute interstitial nephritis
- UA notes 1+ albumin no blood and other cobos bland
- Azotemia likely exacerbated by steroid administration that patient was taking post chemo
-
-
Date of Service: November 23, 2024
CC / HPI / ROS
-
Chief Complaint:
Acute kidney injury
History of Present Illness:
Creatinine improved to 1.5
Patient remains leukopenic and neutropenic
Hemoglobin at 8 point
Hemodynamically labile
Review of Systems:
Grossly nonoliguric
No chest pain or shortness of breath
No documented fever
Labs
-
Labs:
WBC 0.3 10^3/uL (4.8-10.8) L* 11/23/24 07:58
RBC 2.84 10^6/uL (4.70-6.10) L 11/23/24 07:58
Hgb 8.9 g/dL (13.0-18.0) L 11/23/24 07:58
Hct 25.5 % (39.0-52.0) L 11/23/24 07:58
Plt Count 6 10^3/uL (130-400) L* D 11/23/24 07:58
Sodium 136 mmol/L (135-145) 11/23/24 07:58
Potassium 4.3 mmol/L (3.5-5.1) 11/23/24 07:58
Chloride 104 mmol/L (98-107) 11/23/24 07:58
Carbon Dioxide 25 mmol/L (22-30) 11/23/24 07:58
BUN 62 mg/dl (9-20) H 11/23/24 07:58
Creatinine 1.5 mg/dL (0.7-1.3) H 11/23/24 07:58
eGFR 51.35 11/23/24 07:58
Glucose 103 mg/dl (70-99) H 11/23/24 07:58
Calcium 7.5 mg/dl (8.4-10.2) L 11/23/24 07:58
Albumin 2.9 g/dl (3.5-5.0) L 11/23/24 07:58
Physical Exam
-
Vital Signs:
Vital Signs
Temp Pulse Resp BP Pulse Ox
99.2 F 85 21 106/50 95
11/23/24 08:56 11/23/24 09:22 11/23/24 08:56 11/23/24 09:22 11/23/24 10:42
Cardiovascular:: Regular rate and rhythm
Respiratory:: Bilateral: CTA
Lung Excursion:: Normal
Abdomen:: Nontender and Soft
Bowel Sounds:: Normal
Extremity Edema:: None: Bilateral:
Thrasher Catheter: No
[2024-11-23] MEDS: DUPHALAC/CHRONULAC 20 GRAMS PO (17:13)
[2024-11-24] MEDS: SODIUM BICARBONATE 1075 MEQ IV (03:14)
[2024-11-24] MEDS: SYNTHROID 75 MCG PO (05:25)
[2024-11-24 05:42] LABS: Hematocrit 23.1 % (39.0-52.0); Mean Corp Hgb Conc. 34.6 g/dL (33.0-37.0); Mean Corpuscular Hgb 31.7 pg (27.0-31.0); Mean Corpuscular Volume 91.7 fL (80.0-94.0); Mean Platelet Volume 8.4 fL (7.4-10.4); Platelet Count 13 10^3/uL (130-400); Red Blood Cell Count 2.52 10^6/uL (4.70-6.10); Red Cell Dist. Width 15.5 % (11.5-14.5); White Blood Cell Count 0.6 10^3/uL (4.8-10.8)
[2024-11-24 06:00] VITALS: BMI 27.0
[2024-11-24 06:06] LABS: ALT (SGPT) 61 U/L (0-50); AST (SGOT) 46 U/L (17-59); Albumin 2.6 g/dl (3.5-5.0); Alkaline Phosphatase 98 U/L (38-126); Blood Urea Nitrogen 38 mg/dl (9-20); Calcium 7.6 mg/dl (8.4-10.2); Carbon Dioxide 26 mmol/L (22-30); Chloride 107 mmol/L (98-107); Estimated Creatinine Clearance 52 ml/min; Glucose 94 mg/dl (70-99); Potassium 3.8 mmol/L (3.5-5.1); Sodium 138 mmol/L (135-145); Total Bilirubin 6.5 mg/dl (0.2-1.3); Total Protein 4.8 g/dl (6.3-8.2); eGFR > 60.00
[2024-11-24 07:48] VITALS: BP 116/69
[2024-11-24] MEDS: NSS (PRESERVATIVE FREE) 8 ML IV (09:00)
[2024-11-24] MEDS: PEPCID 20 MG IV (09:00)
[2024-11-24] MEDS: TOPROL XL PO (09:02)
[2024-11-24 09:24] LABS: % Immature Granulocytes 1.8 % (0-0.5); % Lymphocytes 46.4 % (20.5-51.1); % Monocytes 12.5 % (1.7-9.3); % Neutrophils 39.3 % (42.2-75.2); Absolute Lymphocytes 0.3 10^3/uL (1.2-3.4); Absolute Monocytes 0.1 10^3/uL (0.1-0.6); Absolute Neutrophils 0.2 10^3/uL (1.4-6.5); Nucleated Red Blood Cells % 0 % (-)
--- NOTE | 2024-11-24 11:26 | W.PN.NEPH.PH ---
Today's Communication / Plan
-
finish IVF
Assessment/Plan
-
Impression:
Acute Kidney Injury
Hyponatremia
Hyperkalemia
Epigastric Abdominal Pain, possible gastritis
Pancytopenia with Neutropenia, and profound Thrombocytopenia
Metastatic Lung Cancer (Liver and Bone)
Coronary Artery Disease s/p Cardiac Stent
Peripheral Arterial Disease s/p Right Iliac Stent
Essential Hypertension
Hypothyroidism
Plan:
po intake slowly improving
cap IVF
follow BMP
-
-
Date of Service: November 24, 2024
CC / HPI / ROS
-
Chief Complaint:
Acute kidney injury
History of Present Illness:
Creatinine improved to 1.3
Patient remains pancytopenic
Hemoglobin at 8
Hemodynamically stable
Review of Systems:
Grossly nonoliguric
No chest pain or shortness of breath
No documented fever
Labs
-
Labs:
WBC 0.6 10^3/uL (4.8-10.8) L* 11/24/24 05:22
RBC 2.52 10^6/uL (4.70-6.10) L 11/24/24 05:22
Hgb 8.0 g/dL (13.0-18.0) L 11/24/24 05:22
Hct 23.1 % (39.0-52.0) L 11/24/24 05:22
Plt Count 13 10^3/uL (130-400) L* D 11/24/24 05:22
Sodium 138 mmol/L (135-145) 11/24/24 05:22
Potassium 3.8 mmol/L (3.5-5.1) 11/24/24 05:22
Chloride 107 mmol/L (98-107) 11/24/24 05:22
Carbon Dioxide 26 mmol/L (22-30) 04/28/25 05:22
BUN 38 mg/dl (9-20) H 11/24/24 05:22
Creatinine 1.3 mg/dL (0.7-1.3) 11/24/24 05:22
eGFR > 60.00 11/24/24 05:22
Glucose 94 mg/dl (70-99) 11/24/24 05:22
Calcium 7.6 mg/dl (8.4-10.2) L 11/24/24 05:22
Albumin 2.6 g/dl (3.5-5.0) L 11/24/24 05:22
Physical Exam
-
Vital Signs:
Vital Signs
Temp Pulse Resp BP Pulse Ox
98 F 98 20 116/69 99
11/24/24 07:48 11/24/24 09:02 11/24/24 07:48 11/24/24 09:02 11/24/24 07:48
Cardiovascular:: Regular rate and rhythm
Respiratory:: Bilateral: Coarse
Lung Excursion:: Normal
Abdomen:: Nontender and Soft
Bowel Sounds:: Normal
Extremity Edema:: None: Bilateral:
--- NOTE | 2024-11-24 11:55 | W.PN.HOSP.TC ---
Today's Communication/Plan
-
see A/P
Assessment / Plan
Assessment / Plan
A/P:
# Acute kidney injury likely multifactorial 2/2 decreased p.o. intake versus unclear if related to chemotherapy (zepzelca), hypotension
BESSIE has resolved. Metabolic acidosis also resolved
SCr improved from 3.0 on admission to 1.3 today
observe off further IVF
No hydronephrosis noted on the CAT scan. Urine eosinophils negative
Appreciate renal input
# Hyponatremia, suspect hypovolemic in setting of poor oral intake, possibly component of SIADH due to lung cancer
resolved.
# Hyperkalemia, resolved
# Epigastric Abdominal Pain, possible gastritis versus pain related to severe lymphadenopathy
Off Protonix with severe thrombocytopenia and switched to Pepcid
Diet advanced to regular, tolerated well
# Metastatic Lung Cancer (Liver and Bone) likely stage IV
# Pancytopenia with severe Neutropenia, and profound Thrombocytopenia
# Chemotherapy-induced severe neutropenia and thrombocytopenia
Appreciate Oncology input
counts although low, have seen stable
he is s/p 2 units platelet transfusion
Per Onc, cytopenias themselves are not indication for continued inpatient hospitalization. Once electrolytes and BESSIE are improved, patient can be discharged from Heme Onc perspective.
Last chemotherapy November 14
# Coronary Artery Disease s/p Cardiac Stent
# Peripheral Arterial Disease s/p Right Iliac Stent
Hold aspirin and Brilinta as risk outweighs benefits. Per patient, last cardiac stent was 5 to 6 years ago
This was discussed with patient and patient niece who both stated that patient had antiplatelet agent held for quite some time during hospitalization at [facility]. Both agreed and were amenable to holding antiplatelet agents with severe
thrombocytopenia.
# Transaminitis and bilirubin elevated likely secondary to malignancy and metastasis
LFT Improved
CT scan with liver metastasis noted. There is also a large amount of metastasis and lymphadenopathy in the giorgi hepatis and portacaval region. There is no abnormal biliary dilatation. Gallbladder is filled with sludge and cholelithiasis.
# Essential Hypertension
Continue amlodipine and metoprolol with hold parameters
# Hypothyroidism
Continue Levothyroxine
DVT proph: SCDs in the setting of severe thrombocytopenia
Code Status: Full Code
called tammy twice to update, calls not answered
total time 51 min
Anticipated Discharge: 24 - 48 hours
Subjective/Interval History
-
Date of Service: November 24, 2024
Objective Data
-
Labs:
Laboratory Results
11/24/24
05:22
WBC 0.6 L*
Hgb 8.0 L
Hct 23.1 L
Plt Count 13 L* D
Sodium 138
Potassium 3.8
Chloride 107
Carbon Dioxide 26
BUN 38 H
Creatinine 1.3
Glucose 94
Calcium 7.6 L
Total Bilirubin 6.5 H
AST 46
ALT 61 H
Alkaline Phosphatase 98
Vital Signs:
Vital Signs
Temp Pulse Resp BP Pulse Ox
36.6 C 98 20 116/69 99
11/24/24 07:48 11/24/24 09:02 11/24/24 07:48 11/24/24 09:02 11/24/24 07:48
I&O
11/23/24 11/24/24 11/25/24
06:59 06:59 06:59
Intake Total 3880 / 3880 3036 / 3036
Output Total 2625 / 2625 300 / 300
Balance 1255 / 1255 2736 / 2736
Review of Systems
-
History Source: Patient
All other systems: Reviewed and negative
Physical Exam
-
General: Well Developed, No Apparent Distress and Comfortable
HEENT: Normocephalic, Atraumatic and Moist Mucous Membranes
Respiratory: Clear to Auscultation
Cardiac: Regular Rhythm and S1/S2
GI: Soft, Nontender, Normal Bowel Sounds and Distended; Negative Organomegaly
Rectal: Deferred by Provider
Musculoskeletal: No Clubbing, No Cyanosis and No Edema
Skin: Jaundice; Negative Rash
Neuro: Awake, Alert, Oriented, AO x 3 and No Motor Deficits
Psych: Calm and Intact Judgement/Insight
Data Reviewed
-
Labs: Labs Reviewed by me
[2024-11-24 15:40] VITALS: BP 124/54
[2024-11-24 16:57] VITALS: PULSE 88; O2SAT 96
[2024-11-24] MEDS: DUPHALAC/CHRONULAC PO (17:35)
--- NOTE | 2024-11-24 18:16 | W.PN.ONC2 ---
Today's Communication / Plan
-
Case d/w pt's [facility], on conference call with pt in room and niece on cell phone.
AUTO BODY REPAIRER FIBERGLASS is aware of hospitalization as she directed him to ED for renal failure and malaise. Cr now significantly improved and he is feeling much better. AUTO BODY REPAIRER FIBERGLASS will be able to offer close outpt folllow up.
Suggest D/C after planned platelet transfusion as long as he has not developed fever and is clinically stable.
Impression
Impression
Metastatic SCLC with liver, LN, blastic bone mets
Chemotherapy-induced neutropenia and thrombocytopenia, both severe
BESSIE
Hyponatremia, hypokalemia
Coronary Artery Disease s/p Cardiac Stent
Peripheral Arterial Disease s/p Right Iliac Stent
Plan
Plan
Patient admitted with epigastric pain presumably cancer related although cannot rule out other issues such as gastritis, PUD, etc.
Electrolyte abnormalities possibly combination of dehydration, prerenal azotemia, BESSIE.
Sodium and potassium are improving. Monitor creatinine with hydration.
CT scan reveals pretty extensive metastatic disease burden.
Regarding low blood counts, this is expected following Zepzelca.
No fever or evidence of infection. No role for antibiotic.
Pt indicates he got Neulasta.
11/24 plan:
Case d/w pt's [facility], on conference call with pt in room and niece on cell phone.
AUTO BODY REPAIRER FIBERGLASS is aware of hospitalization as she directed him to ED for renal failure and malaise. Cr now significantly improved and he is feeling much better. AUTO BODY REPAIRER FIBERGLASS will be able to offer close outpt folllow up.
Suggest D/C after planned platelet transfusion as long as he has not developed fever and is clinically stable.
Pt will return to care of Dr. Gilma Ellis and DWAIN.
Subjective/Objective
Chief Complaint
Heme/Onc follow up of chemo cytopenias
Subjective
Feels okay, frustrated about lack of communication between [place] and [place]
Vital Signs:
Vital Signs
Temp Pulse Resp BP Pulse Ox
98.4 F 90 12 124/54 93
11/24/24 15:40 11/24/24 15:40 11/24/24 15:40 11/24/24 15:40 11/24/24 15:40
Lab Results:
Laboratory Data
WBC 0.6 10^3/uL (4.8-10.8) L* 11/24/24 05:22
Hgb 8.0 g/dL (13.0-18.0) L 11/24/24 05:22
Plt Count 13 10^3/uL (130-400) L* D 11/24/24 05:22
eGFR > 60.00 11/24/24 05:22
Physical Exam
Awake, alert, non-toxic
[2024-11-24] MEDS: TOPROL XL 50 MG PO (21:47)
[2024-11-24 23:00] VITALS: BP 104/42
[2024-11-25] VITALS (8 sets, daily range): BP systolic 117–144; BP diastolic 61–76; BMI 26.8
[2024-11-25 05:15] LABS: ALT (SGPT) 54 U/L (0-50); AST (SGOT) 44 U/L (17-59); Albumin 2.6 g/dl (3.5-5.0); Alkaline Phosphatase 120 U/L (38-126); Blood Urea Nitrogen 29 mg/dl (9-20); Carbon Dioxide 25 mmol/L (22-30); Chloride 109 mmol/L (98-107); Estimated Creatinine Clearance 52 ml/min; Glucose 80 mg/dl (70-99); Potassium 3.9 mmol/L (3.5-5.1); Sodium 139 mmol/L (135-145); Total Bilirubin 6.8 mg/dl (0.2-1.3); Total Protein 4.8 g/dl (6.3-8.2); eGFR > 60.00
[2024-11-25] MEDS: SYNTHROID 75 MCG PO (05:41)
[2024-11-25 07:24] LABS: Hematocrit 23.7 % (39.0-52.0); Hemoglobin 8.1 g/dL (13.0-18.0); Mean Corp Hgb Conc. 34.2 g/dL (33.0-37.0); Mean Corpuscular Hgb 31.6 pg (27.0-31.0); Mean Corpuscular Volume 92.6 fL (80.0-94.0); Mean Platelet Volume 11.1 fL (7.4-10.4); Platelet Count 8 10^3/uL (130-400); Red Blood Cell Count 2.56 10^6/uL (4.70-6.10); Red Cell Dist. Width 15.7 % (11.5-14.5); White Blood Cell Count 1.2 10^3/uL (4.8-10.8)
[2024-11-25 08:25] LABS: % Basophils 0.8 % (0-2); % Eosinophils 0.8 % (0-6); % Immature Granulocytes 3.3 % (0-0.5); % Lymphocytes 34.1 % (20.5-51.1); % Monocytes 8.9 % (1.7-9.3); % Neutrophils 52.1 % (42.2-75.2); Absolute Lymphocytes 0.4 10^3/uL (1.2-3.4); Absolute Monocytes 0.1 10^3/uL (0.1-0.6); Absolute Neutrophils 0.6 10^3/uL (1.4-6.5); Nucleated Red Blood Cells % 0 % (-)
--- NOTE | 2024-11-25 08:44 | W.PN.ONC2 ---
Today's Communication / Plan
-
.
Impression
Impression
Metastatic SCLC with liver, LN, blastic bone mets
Chemotherapy-induced neutropenia and thrombocytopenia, both severe. He tells me that he did receive pegfilgrastim with treatment
BESSIE
Hyponatremia, hypokalemia
Coronary Artery Disease s/p Cardiac Stent
Peripheral Arterial Disease s/p Right Iliac Stent
Plan
Plan
neutropenic precautions
No fever or evidence of infection. No role for antibiotic.
Pt indicates he got Neulasta.
[facility] onc COMMUNICATIONS INSTRUCTOR is aware of hospitalization as she directed him to ED for renal failure and malaise. COMMUNICATIONS INSTRUCTOR will be able to offer close outpt follow up -pt is agreeable to labs for possible transfusion on 11/27
possible D/C after planned platelet transfusion as long as he has not developed fever and is clinically stable without bleeding -discussed with pt and he is agreeable
Pt will return to care of Dr. Gilma Ellis and DWAIN.
Subjective/Objective
Subjective
mild epistaxis
afebrile
ANC 600, Hgb 8.1, plt 8
Vital Signs:
Vital Signs
Temp Pulse Resp BP Pulse Ox
98.8 F 82 18 133/76 93
11/25/24 07:37 11/25/24 07:37 11/25/24 07:37 11/25/24 07:37 11/25/24 07:37
Lab Results:
Laboratory Data
WBC 1.2 10^3/uL (4.8-10.8) L* 11/25/24 04:06
Hgb 8.1 g/dL (13.0-18.0) L 11/25/24 04:06
Plt Count 8 10^3/uL (130-400) L* D 11/25/24 04:06
eGFR > 60.00 11/25/24 04:06
Physical Exam
HEENT: Moist Mucous Membranes; No Jaundice
Cardiology: Normal Sinus Rhythm
Pulmonary: Clear
GI: Soft
Extremities: Pulses Present; No Edema
Neuro: Non Focal
[2024-11-25] MEDS: NSS (PRESERVATIVE FREE) 8 ML IV (08:47)
[2024-11-25] MEDS: TOPROL XL 50 MG PO (08:47)
[2024-11-25] MEDS: PEPCID 20 MG IV (08:48)
--- NOTE | 2024-11-25 09:02 | W.PN.NEPH.PH ---
Today's Communication / Plan
-
dc planning
Assessment/Plan
-
Impression:
Acute Kidney Injury
Hyponatremia
Hyperkalemia
Epigastric Abdominal Pain, possible gastritis
Pancytopenia with Neutropenia, and profound Thrombocytopenia
Metastatic Lung Cancer (Liver and Bone)
Coronary Artery Disease s/p Cardiac Stent
Peripheral Arterial Disease s/p Right Iliac Stent
Essential Hypertension
Hypothyroidism
Plan:
po intake improved
follow BMP
transfusion per hematology
pt is adamant about leaving
will sign off, please call with questions
-
-
Date of Service: November 25, 2024
CC / HPI / ROS
-
Chief Complaint:
Acute kidney injury
History of Present Illness:
Creatinine improved to 1.3 stable
Patient remains pancytopenic
Hemoglobin at 8
Hemodynamically stable
Review of Systems:
Grossly nonoliguric
No chest pain or shortness of breath
No documented fever
Labs
-
Labs:
WBC 1.2 10^3/uL (4.8-10.8) L* 11/25/24 04:06
RBC 2.56 10^6/uL (4.70-6.10) L 11/25/24 04:06
Hgb 8.1 g/dL (13.0-18.0) L 11/25/24 04:06
Hct 23.7 % (39.0-52.0) L 11/25/24 04:06
Plt Count 8 10^3/uL (130-400) L* D 11/25/24 04:06
Sodium 139 mmol/L (135-145) 11/25/24 04:06
Potassium 3.9 mmol/L (3.5-5.1) 11/25/24 04:06
Chloride 109 mmol/L (98-107) H 04/29/25 04:06
Carbon Dioxide 25 mmol/L (22-30) 11/25/24 04:06
BUN 29 mg/dl (9-20) H 11/25/24 04:06
Creatinine 1.3 mg/dL (0.7-1.3) 11/25/24 04:06
eGFR > 60.00 11/25/24 04:06
Glucose 80 mg/dl (70-99) 11/25/24 04:06
Calcium 8.0 mg/dl (8.4-10.2) L 11/25/24 04:06
Albumin 2.6 g/dl (3.5-5.0) L 11/25/24 04:06
Physical Exam
-
Vital Signs:
Vital Signs
Temp Pulse Resp BP Pulse Ox
98.8 F 82 18 133/76 93
11/25/24 07:37 11/25/24 08:47 11/25/24 07:37 11/25/24 08:47 11/25/24 07:37
Cardiovascular:: Regular rate and rhythm
Respiratory:: Bilateral: CTA
Lung Excursion:: Normal
Abdomen:: Nontender and Soft
Bowel Sounds:: Normal
Extremity Edema:: None: Bilateral:
--- NOTE | 2024-11-25 10:18 | W.PN.HOSP.TC ---
Addendum entered and electronically signed by Rajni Butt MD 11/25/24 13:58:
# Pancytopenia is chemotherapy induced
Addendum entered and electronically signed by Rajni Butt MD 11/25/24 13:50:
d/w Onc, OK for discharge after platelet transfusion today.
Follow CBC with PCP/Onc
total DC time 45 min
Original Note:
Today's Communication/Plan
-
see A/P
Assessment / Plan
Assessment / Plan
A/P:
# Acute kidney injury likely multifactorial 2/2 decreased PO intake, vs ?related to chemo, vs hypotension
BESSIE has resolved. Metabolic acidosis also resolved
SCr improved from 3.0 on admission to 1.3 today
off further IVF
No hydronephrosis noted on the CAT scan. Urine eosinophils negative
Appreciate renal input
# Hypovolemic hyponatremia, resolved.
# Hyperkalemia, resolved
# Epigastric Abdominal Pain, possible gastritis versus pain related to severe lymphadenopathy
Off Protonix with severe thrombocytopenia and switched to Pepcid
Diet advanced to regular; tolerated well
# Metastatic Lung Cancer (mets to Liver and Bone)
# Pancytopenia with severe Neutropenia and profound Thrombocytopenia
# Chemotherapy-induced severe neutropenia and thrombocytopenia (Last chemotherapy November 14)
Appreciate Oncology input
counts although low, have seen stable
s/p 2 units platelet transfusion, transfuse additional platelet today per Onc
Onc on board
# Coronary Artery Disease s/p Cardiac Stent
# Peripheral Arterial Disease s/p Right Iliac Stent
Per patient, last cardiac stent was 5 to 6 years ago.
Hold aspirin and Brilinta as risk outweighs benefits. Patient and niece both agreed
# Transaminitis and bilirubin elevated likely secondary to malignancy and metastasis
LFT Improved
CT scan with liver metastasis noted. There is also a large amount of metastasis and lymphadenopathy in the giorgi hepatis and portacaval region.
# Essential Hypertension
Continue amlodipine and metoprolol with hold parameters
# Hypothyroidism
Continue Levothyroxine
DVT proph: SCDs in the setting of severe thrombocytopenia
Code Status: Full Code
DW Renal and Onc
DW RN
d/w niece on the phone in patient room
total time 51 min
Anticipated Discharge: 24 - 48 hours
Subjective/Interval History
-
Date of Service: November 25, 2024
Objective Data
-
Labs:
Laboratory Results
11/25/24
04:06
WBC 1.2 L*
Hgb 8.1 L
Hct 23.7 L
Plt Count 8 L* D
Sodium 139
Potassium 3.9
Chloride 109 H
Carbon Dioxide 25
BUN 29 H
Creatinine 1.3
Glucose 80
Calcium 8.0 L
Total Bilirubin 6.8 H
AST 44
ALT 54 H
Alkaline Phosphatase 120
Vital Signs:
Vital Signs
Temp Pulse Resp BP Pulse Ox
36.7 C 85 17 144/73 95
11/25/24 09:33 11/25/24 09:33 11/25/24 09:33 11/25/24 09:33 11/25/24 09:33
I&O
11/24/24 11/25/24 11/26/24
06:59 06:59 06:59
Intake Total 3036 / 3036 920 / 920
Output Total 300 / 300
Balance 2736 / 2736 920 / 920
Review of Systems
-
History Source: Patient
All other systems: Reviewed and negative
Physical Exam
-
General: Well Developed, No Apparent Distress, Comfortable and Conversant
HEENT: Normocephalic, Atraumatic and Moist Mucous Membranes
Respiratory: Clear to Auscultation and Non Labored Respirations; Negative Accessory Resp Muscle Use
Cardiac: Regular Rhythm and S1/S2
GI: Soft and Nontender
Rectal: Deferred by Provider
Musculoskeletal: No Clubbing, No Cyanosis and No Edema
Skin: Jaundice; Negative Rash
Neuro: Awake, Alert, Oriented, AO x 3 and No Motor Deficits
Psych: Calm and Intact Judgement/Insight
Data Reviewed
-
Labs: Labs Reviewed by me
--- NOTE | 2024-11-25 10:40 | PN.CDI ---
CDI
- -
CDI:
Physician Documentation Request
Admit Date: 11/21/24 21:08
Dear Doctor Filomena,
Patient is currently being treated for Metastatic lung cancer (mets to Liver and Bone)
Progress note states 'Pancytopenia with severe Neutropenia and profound Thrombocytopenia. Chemotherapy-induced severe neutropenia and thrombocytopenia (Last chemotherapy November 14)'
Please clarify the following:
Yes - Pancytopenia is chemotherapy induced
No - Pancytopenia is not chemotherapy induced
Unable to determine
Use of terms such as suspected, likely, concern for, or probable (associated with a specific diagnosis that is being evaluated, monitored, or treated as if it exists) are acceptable and can be coded in the inpatient setting, when documented at the
time of discharge.
Thank you,
gAa Brenner RN, BSN
CDI Specialist
tiger text
Please use your independent medical judgment in providing your response.
--- NOTE | 2024-11-25 14:12 | CM ---
CM met with Juan to complete IA. Juan typically lives in [place], but due to his medical care being in [place], he is currently staying with a family member in [place]. He has a first floor set up with the exception of a shower
which is on the upper level, but he is able to traverse the steps to take a shower.
Pt seen by PT ambulatory, on room air. No skilled needs identified.
IMM provided; pt declined to sign because he was resting and covered with blankets. Verbal consent provided and pt provided with a copy of the IMM. Reviewed calling the number on the form if he felt he was being discharged too soon.
Plan: Discharge to home in [place] with outpatient f/u with PCP. No needs identified.
--- NOTE | 2024-11-25 14:32 | W.DCSUMMARY ---
Discharge Summary
Discharge Data
Date of Admission: 11/21/24
Date of Discharge: 11/25/24
-
Pending Results: No
Hospital Course
Principal Diagnosis:
Acute kidney injury (BESSIE) likely multifactorial due to decreased PO intake, vs ?related to chemo, vs hypotension
severe neutropenia and profound thrombocytopenia, in setting of metastatic lung cancer on chemotherapy
Chronic Diagnoses:�
Metastatic lung cancer (mets to liver and bone)
Pancytopenia with severe neutropenia and profound thrombocytopenia
Chemotherapy-induced severe neutropenia and thrombocytopenia (Last chemotherapy November 14)
Epigastric abdominal pain, possible gastritis versus pain related to severe lymphadenopathy
Coronary Artery Disease s/p Cardiac Stent
Peripheral Arterial Disease s/p Right Iliac Stent
Transaminitis and bilirubin elevated likely secondary to malignancy and metastasis
Essential Hypertension, on amlodipine and metoprolol
Hypothyroidism, on Levothyroxine
Consultations:�
Oncology
Nephrology
Procedures:�
None
Clinical course:�
This is a 64-year-old male, with past medical history as stated above, who presented with poor oral intake and mild epigastric abdominal pain
Problem 1:
Acute kidney injury likely multifactorial 2/2 decreased PO intake, vs ?related to chemo, vs hypotension.
His BESSIE resolved following IV fluid support. His serum creatinine improved from 3.0 on admission to 1.3 on the day of discharge.
Of note, his CT scan did not show hydronephrosis, and his urine eosinophil was negative.
Of note, his hypovolemic hyponatremia also resolved with IV fluid support.
Problem 2:
Severe neutropenia and profound thrombocytopenia, in setting of metastatic lung cancer on chemotherapy.
He received 3 units platelet transfusion this admission.
He was cleared for discharge by oncology.
He has been informed to follow-up closely with his oncologist for close blood count monitoring.
As for the rest of his medical problems, they were stable during his hospital stay.
Discharge Plan
-
Patient Disposition: Home (Routine Discharge)
Discharge Diagnosis/Procedures: Resolved acute kidney injury;
Pancytopenia with severe neutropenia and profound thrombocytopenia;
status post 3 units platelet transfusion this admission;
Metastatic Lung Cancer (mets to Liver and Bone)
Condition: Fair
Diet: As tolerated
Activity: As tolerated
Driving Restrictions: As prior to admission
Blood Work: CBC with differential, result to with your PCP/oncologist
Referrals:
Jose R Garcia Jr., DO [Family Provider] - in less than 1 week
Additional Discharge Medication Instructions: Stop further aspirin and Brillianta
Continue Toprol. Stop Norvasc. Blood pressure stable on current regimen.
Prescriptions:
Continued
metoprolol succinate [Toprol XL] 50 mg Tablet Extended Release 24 Hr
50 mg PO BID
prochlorperazine maleate [Compazine] 10 mg Tablet
10 mg PO BIDPRN PRN (Reason: nausea)
levothyroxine [Synthroid] 75 mcg Tablet
75 mcg PO DAILY
lorazepam 0.5 mg Tablet
0.5 mg PO BIDPRN PRN (Reason: anxiety)
Patient Comments:
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
dexamethasone 4 mg Tablet
4 mg PO DIRECTED
Rx Instructions:
STARTING THE DAY OF TREATMENT TAKE 8MG AND THE NEXT 4 DAYS AFTER TREATMENT
ezetimibe [Zetia] 10 mg Tablet
10 mg PO DAILY
lactulose 10 gram/15 mL Solution
20 g PO QPM
magnesium oxide 400 mg magnesium Tablet
400 mg PO DAILY
Discontinued
aspirin 81 mg Tablet,Delayed Release (Dr/Ec)
81 mg PO DAILY
amlodipine [Norvasc] 10 mg Tablet
10 mg PO QPM
Brilinta 60 mg Tablet
60 mg PO BID
Discharge Orders:
Discharge Patient (As Directed); Ordered 11/25/24
Ordered By: Rajni Butt
Discharge Date and Time
Print Language: BOTSWANAN
== END 2024-11-25 17:28 | disposition home or self-care (01) | DRG 682 ==
LOC: 3 WEST ACU 21:08
PROVIDERS: Hospitalist; Physician Assistant Medical; ADMITTING PHYSICIAN Internal Medicine; ATTENDING PHYSICIAN Internal Medicine; CONSULT PHYSICIAN Internal Medicine Hematology & Oncology; EMERGENCY PHYSICIAN Emergency Medicine; FAMILY PHYSICIAN Family Medicine; OTHER PHYSICIAN Specialist
PROC: 30233R1 Transfusion of Nonautologous Platelets into Peripheral Vein, Percutaneous Approach (ICD-10-PCS; 2024-11-22)
DX: N17.9 Acute kidney failure, unspecified (principal); D61.810 Antineoplastic chemotherapy induced pancytopenia; C34.90 Malignant neoplasm of unspecified part of unspecified bronchus or lung; C79.51 Secondary malignant neoplasm of bone; E87.1 Hypo-osmolality and hyponatremia; E87.20 Acidosis, unspecified; D61.818 Other pancytopenia; D70.1 Agranulocytosis secondary to cancer chemotherapy; E87.6 Hypokalemia; I25.10 Atherosclerotic heart disease of native coronary artery without angina pectoris; Z95.5 Presence of coronary angioplasty implant and graft; I73.9 Peripheral vascular disease, unspecified; Z87.891 Personal history of nicotine dependence; E87.5 Hyperkalemia; I10 Essential (primary) hypertension; E03.9 Hypothyroidism, unspecified; T45.1X5A Adverse effect of antineoplastic and immunosuppressive drugs, initial encounter; D69.59 Other secondary thrombocytopenia; G89.3 Neoplasm related pain (acute) (chronic); K29.70 Gastritis, unspecified, without bleeding
CPT/HCPCS: 74176; 80048; 80053; 81003; 81015; 81099; 82248; 82607; 82728; 82746; 83540; 83550; 83690; 83735; 83930; 83935; 84300; 85025; 85027; 86850; 86870; 86900; 86901; 86905; 93005; 96360; 97162; 99285; J7030; P9073

== ENCOUNTER 2024-12-12 23:47 | Inpatient (IN) | payer MEDICARE, SELFPAY ==
[2024-12-12 19:50] VITALS: BP 133/66
[2024-12-12 19:59] VITALS: BMI 28.1
[2024-12-12 20:00] VITALS: BP 114/55
[2024-12-12 20:05] VITALS: BP 114/55
[2024-12-12 20:08] LABS: Mean Corp Hgb Conc. 33.3 g/dL (33.0-37.0); Mean Corpuscular Hgb 31.6 pg (27.0-31.0); Mean Corpuscular Volume 94.7 fL (80.0-94.0); Red Blood Cell Count 2.85 10^6/uL (4.70-6.10); Red Cell Dist. Width 23.3 % (11.5-14.5); White Blood Cell Count 4.7 10^3/uL (4.8-10.8)
[2024-12-12 20:27] LABS: Troponin I 0.017 ng/ml
[2024-12-12 20:28] LABS: Absolute Neutrophils -Man Diff 3.1 10^3/uL (1.4-6.5); Band Neutrophils 0 % (0-3); Lymphocytes 13 % (20-51); Monocytes 15 % (2-9); Platelet Count 13 10^3/uL (130-400); Segmented Neutrophils 68 % (42-75)
[2024-12-12 20:29] LABS: Metamyelocytes 1 % (-); Myelocytes 3 % (-); Normal RBC Morphology No; Nucleated Red Blood Cells 19 (-); Platelets Checked Yes
[2024-12-12 20:30] LABS: Anisocytosis 2+; Macrocytosis 1+; Microcytosis 1+; Polychromasia 1+
[2024-12-12 20:31] LABS: Hypochromasia 2+; Total Cells Counted 100
[2024-12-12 20:34] LABS: NT-proBNP 3790 pg/ml
[2024-12-12 20:40] LABS: Total Bilirubin 30.6 mg/dl (0.2-1.3)
[2024-12-12 20:41] LABS: ALT (SGPT) 35 U/L (0-50); AST (SGOT) 148 U/L (17-59); Albumin 3.3 g/dl (3.5-5.0); Alkaline Phosphatase 287 U/L (38-126); Blood Urea Nitrogen 32 mg/dl (9-20); Calcium 8.9 mg/dl (8.4-10.2); Carbon Dioxide 26 mmol/L (22-30); Chloride 103 mmol/L (98-107); Estimated Creatinine Clearance 42 ml/min; Glucose 96 mg/dl (70-99); Potassium 4.2 mmol/L (3.5-5.1); Sodium 135 mmol/L (135-145); Total Protein 6.6 g/dl (6.3-8.2); eGFR 47.52
[2024-12-12 21:04] VITALS: BP 114/67
[2024-12-12] MEDS: MORPHINE SULFATE 2 MG IV (21:43)
[2024-12-12 22:00] VITALS: BP 111/69
--- NOTE | 2024-12-12 22:37 | ED.GENMED ---
History of Present Illness
General
Chief Complaint: Chest Pain
Time Seen by Provider: 12/12/24 21:14
History of Present Illness
History of Present Illness:
Patient is a 64-year-old man with history of metastatic lung cancer with mets to the liver presenting to the emergency department with shortness of breath chest pain and worsening pain. Per patient's niece Rivas who is his decision-maker patient
was at [facility] for jaundice shortness of breath liver failure and swelling. They were offered hospice but at that time they were not ready to hear the word hospice and decided to be discharged with palliative care visit tomorrow. Today patient
developed some shortness of breath and worsening abdominal pain and swelling as well as worsening jaundice so she brought patient in for further evaluation. At this time patient's biggest complaint is the pain that is not controlled at home with
the oxycodone. He states that the shortness of breath is secondary to the abdominal distention. He denies chest pain at this time. Initially he told nursing he had chest pain earlier in the day but declined it for me.
Past History
Past History
ED Past Medical History: CAD and Cancer (Stage IV lung cancer)
ED Past Surgical History: Cardiac and Other (Right iliac stent)
Social History
Tobacco: Other
Alcohol: Other
Drug: None
Personal: Single
Living: with family
Employment: Other
Family History
Family History: Other
Phy Exam
Physical Exam
Physical Exam:
GENERAL: Chronically ill-appearing, jaundiced
HEENT: normocephalic, extraocular movements intact, dry oral mucosa, scleral icterus
NECK: normal inspection
RESPIRATORY: no respiratory distress, crackles in anterior lung spann
CARDIOVASCULAR: regular rate and rhythm
ABDOMEN/: soft, distended non-tender to palpation, no rebound or guarding
EXTREMITIES: non-tender, bilateral edema
NEUROLOGIC: awake and alert, though intermittently confused, moves all extremities
SKIN: warm
Scores
Heart Score for Chest Pain Patients
STEMI patient?: Not applicable
Course
Orders/Labs/Results
Orders:
Orders
12/12/24 19:46
Electrocardiogram (*1) Urgent
Reason for Study: Chest Pain
EKG- Treatment ONCE
12/12/24 19:53
Complete Blood Count/With Diff Urgent
Comprehensive Metabolic Panel Urgent
Direct Bilirubin Urgent
Comment: ADD ON
Manual Differential Urgent
NT-proBNP Urgent
Comment: ADD ON
Troponin I Urgent
12/12/24 19:59
Add On- LAB Urgent
Comments:: BNP
Tests Added?: BNP
CR Chest - 2 Views Urgent
Comment:
Reason For Exam: cp
12/12/24 20:48
Add On- LAB Urgent
Tests Added?: direct billirubin
12/12/24 21:35
Morphine Sulfate 2 mg IV NOW STA
Abnormal Lab Results
12/12/24
19:53
WBC 4.7 L 10^3/uL
(4.8-10.8)
RBC 2.85 L 10^6/uL
(4.70-6.10)
Hgb 9.0 L g/dL
(13.0-18.0)
Hct 27.0 L %
(39.0-52.0)
MCV 94.7 H fL
(80.0-94.0)
MCH 31.6 H pg
(27.0-31.0)
RDW 23.3 H %
(11.5-14.5)
Plt Count 13 L* 10^3/uL
(130-400)
Lymphocytes (Manual) 13 L %
(20-51)
Monocytes (Manual) 15 H %
(2-9)
BUN 32 H mg/dl
(9-20)
Creatinine 1.6 H mg/dL
(0.7-1.3)
Total Bilirubin 30.6 H* mg/dl
(0.2-1.3)
AST 148 H U/L
(17-59)
Alkaline Phosphatase 287 H U/L
(38-126)
Albumin 3.3 L g/dl
(3.5-5.0)
12/12/24 19:53
12/12/24 19:53
Vital Signs
Initial and Last Documented VS:
Initial Vital Signs
Temp Pulse Resp BP Pulse Ox
97.8 F 92 24 133/66 93
12/12/24 19:50 12/12/24 19:50 12/12/24 19:50 12/12/24 19:50 12/12/24 19:50
Last Documented Vital Signs
Temp Pulse Resp BP Pulse Ox
97.8 F 91 26 114/67 94
12/12/24 19:50 12/12/24 21:45 12/12/24 20:05 12/12/24 21:04 12/12/24 21:54
MDM/Problems Addressed
Differential Diagnosis Includes:
Patient is a 64-year-old male with history of metastatic lung cancer presenting to the emergency department worsening pain shortness of breath. On arrival patient's vital signs were unremarkable and exam does show significantly jaundiced
chronically ill-appearing male with significant abdominal distention and bilateral lower leg edema. Differential is broad but consists of worsening malignancy, hepatobiliary obstruction, SBP, pneumonia, pulmonary edema. Blood work was obtained
prior to my evaluation which does show hemoglobin of 9, platelet of 13, significantly elevated bilirubin as well as transaminitis and elevated BNP. Chest x-ray was ordered prior to my evaluation. Per my interpretation concerning for posterior
basal lower lobe pneumonia.
I did have a lengthy discussion with patient and patient's niece Nadege who is patient's decision-maker. At this time they would like to focus on comfort and discussed with hospice. I did discuss CODE STATUS and patient is a DNR/DNI. At this time
patient would prefer to hold off on antibiotics for his pneumonia as he is fixated on the pain.
On reevaluation patient states that his pain is slightly better though not resolved. I did offer additional morphine the patient declined at this time. I again discussed patient the plan of admission with hospice evaluation tomorrow. At that time
patient did become more confused. He was stating that he wanted to focus on comfort but wanted to ultimately go home after the pain is improved. I did state that outpatient hospice could be a consideration after he is evaluated tomorrow. He was
not fully understanding and patient's decision maker was trying to help patient understand. She does state that he appears more encephalopathic and he has been having intermittent and worsening of his encephalopathy especially at nighttime.
Ultimately patient was able to understand slightly and again stated that he did not want antibiotics and was a DNR/DNI. He did state that he wanted to focus on comfort measures and did not want additional imaging or testing. He wants to think
about the antibiotics for pneumonia.
*Critical Care Note
Total Time (30-74mins, 75-104mins- exclusive of procedures): Not Applicable
ED Attending Note
-
Portions of this chart may have been created with voice recognition software.� Occasional wrong word or��sound alike� substitutions may have occurred due to the inherent limitations of voice recognition software.
Discharge Plan
Departure
Patient Disposition: Admit
Date of Disposition: 12/12/24
Time of Disposition: 22:34
Presentation/result/management discussed w/ accepting MD/DO: Hospitalist
Discharge Problem:
Abdominal pain, Shortness of breath
Prescriptions:
No Action
metoprolol succinate [Toprol XL] 50 mg Tablet Extended Release 24 Hr
25 mg PO BID
levothyroxine [Synthroid] 75 mcg Tablet
75 mcg PO DAILY
lorazepam 0.5 mg Tablet
0.5 mg PO BIDPRN PRN (Reason: anxiety)
Patient Comments:
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
ezetimibe [Zetia] 10 mg Tablet
10 mg PO DAILY
lactulose 10 gram/15 mL Solution
20 g PO QPM PRN (Reason: Constipation)
magnesium oxide 400 mg magnesium Tablet
400 mg PO DAILY
sennosides [senna] 8.6 mg Tablet
8.6 mg PO BID PRN (Reason: CONSTIPATION)
oxycodone 5 mg Tablet
5 mg PO Q4H PRN (Reason: pain)
Referrals:
Jose R Garcia Jr., DO [Family Provider] -
Interventions
Interventions:
*Risk Screen - Suicide Last Done: 12/12/24 20:01
*General Assessment Last Done: 12/12/24 20:01
*Neglect/Abuse Screening Last Done: 12/12/24 20:01
*ED- Fall Risk Assessment Last Done: 12/12/24 20:01
*ED COVID-19 Vaccine History Last Done: 12/12/24 20:01
ED- Cardiac Assessment Last Done: 12/12/24 20:30
Discharge Date and Time
Print Language: MACEDONIAN
[2024-12-12 23:00] VITALS: BP 95/63
--- NOTE | 2024-12-12 23:25 | HPS.HSE ---
Family Physician
-
Family Physician: Jose R Garcia
Chief Complaint
-
Shortness of Breath with Worsening Abdominal Pain and Distention
History of Present Illness
Patient is a 64 y/o male past medical history of metastatic lung cancer with known liver and bone mets who presents with shortness of breath and worsening pain. Patient was discharged from [facility] yesterday after a hospitalization for worsening liver
failure due to hepatic mets. Patient was offered hospice but they declined at that time. Patient was discharge home to have a palliative care visit. Patient presents today with worsening abdominal pain, abdominal distention and shortness of breath.
Patient appears slightly confused during my evaluation following a dose of morphine given in the emergency department.
Medical History
Past Medical History
Past Medical History: Reports Other
Additional Past Medical History:
Chronic Hypoxic Respiratory Failure
Metastatic Lung Cancer (Liver and Bone)
Coronary Artery Disease s/p Cardiac Stent
Peripheral Arterial Disease s/p Right Iliac Stent
Essential Hypertension
Hyperlipidemia
Hypothyroidism
Leukemia
Past Surgical History: Reports None
Social History
Tobacco: Former Smoker
Alcohol: None
Living: Other (Patient is currently staying with his niece in [place])
Family History
Family History: Not pertinent
Allergies / Home Medications
Allergies reflects when Allergies were last updated in [facility].
Home Medications with original date entered in [facility]
Allergy/Medication List:
Allergies
Allergy/AdvReac Type Severity Reaction Status Date / Time
No Known Allergies Allergy Verified 12/12/24 21:49
Home Medications
ezetimibe 10 mg tablet (Zetia) 10 mg PO DAILY cholesterol 11/21/24
lactulose 10 gram/15 mL oral solution 20 g PO QPM PRN Constipation 11/21/24
levothyroxine 75 mcg tablet (Synthroid) 75 mcg PO DAILY Thyroid 11/21/24
lorazepam 0.5 mg tablet 0.5 mg PO BIDPRN PRN anxiety 11/21/24
magnesium oxide 400 mg PO DAILY Supplement 11/21/24
metoprolol succinate 50 mg tablet,extended release 24 hr (Toprol XL) 25 mg PO BID Blood Pressure 11/21/24
oxycodone 5 mg tablet 5 mg PO Q4H PRN pain 12/12/24
sennosides 8.6 mg tablet (senna) 8.6 mg PO BID PRN CONSTIPATION 12/12/24
Review of Systems
-
Unable to obtain full review of systems at this time due to: Other (Confusion)
Physical Exam
Vital Signs
Vital Signs
Temp Pulse Resp BP Pulse Ox
97.8 F 98 26 111/69 93
12/12/24 19:50 12/12/24 22:30 12/12/24 20:05 12/12/24 22:00 12/12/24 22:30
Physical Exam
General: No Apparent Distress, Comfortable and Conversant
HEENT: NormoCephalic, Atraumatic and Other (Sclera are icteric)
Respiratory: Clear and Non Labored Respirations
Cardiac: S1/S2 and Regular Rhythm
GI: Soft, Non Tender and Distended
Rectal: Deferred by Provider
Musculoskeletal: No Clubbing, No Cyanosis and Other (Bilateral lower extremity edema)
Skin: Warm, Dry and Jaundice
Neuro: Awake, Alert, No Motor Deficits and Other (Slightly confused)
Psych: Calm
Laboratory Results
-
12/12/24 19:53
12/12/24 19:53
Laboratory Results
Total Bilirubin 30.6 mg/dl (0.2-1.3) H* 12/12/24 19:53
AST 148 U/L (17-59) H 12/12/24 19:53
ALT 35 U/L (0-50) 12/12/24 19:53
Alkaline Phosphatase 287 U/L (38-126) H 12/12/24 19:53
Troponin I 0.017 ng/ml 12/12/24 19:53
Data Reviewed
-
Lab Data: Labs Reviewed by me
Old Records: Reviewed
Impression/Plan
-
End Stage Metastatic Lung Cancer with Worsening Liver Failure due to Liver Mets
-Admit patient for comfort care
-Plan for morphine 2mg IV q1H prn with progression to morphine infusion if needed for pain/shortness of breath
Bilateral Basilar Opacities, possible pneumonia
-Start empiric Levaquin
Chronic Hypoxic Respiratory Failure
-Continue supplemental oxygen
Coronary Artery Disease s/p Cardiac Stent
Peripheral Arterial Disease s/p Right Iliac Stent
-Antiplatelets stopped due to profound thrombocytopenia
Essential Hypertension
-BP running on the low side
-Hold metoprolol
Hyperlipidemia
-Stop Zetia
Hypothyroidism
-Continue levothyroxine
DVT proph contraindicated due to edema and thrombocytopenia
Code Status: DNR/DNI
--- NOTE | 2024-12-12 23:48 | W.PN.UPDATE ---
Update Note
Progress Note Update
This is an addendum to the H&P written by Jammie Quintanilla on 12/12/2024. Patient seen and examined independently with PA.
64-year-old male past medical history of metastatic lung cancer with metastasis to liver and bone, severe chemotherapy-induced neutropenia/thrombocytopenia, CAD status post stent, peripheral arterial disease status post right iliac stent,
hypertension and hypothyroidism presenting with worsening abdominal pain, and worsening shortness of breath.
Recently at [facility] for worsening jaundice secondary to worsening metastatic disease. Hospice was recommended but family was not agreeable at that time.
He requires 4 L of oxygen at this time. Chest x-ray shows pneumonia. Labs otherwise are consistent with worsening metastatic disease with total bilirubin of 30, mild BESSIE and stable pancytopenia.
Family interested in pursuing hospice. Will treat possible pneumonia with Levaquin. Otherwise no other treatment apart from morphine for pain as per comfort protocol. Case management consulted for hospice placement.
[2024-12-13] VITALS (7 sets, daily range): BP systolic 92–108; BP diastolic 51–84; BMI 27.5
[2024-12-13] MEDS: MORPHINE SULFATE 2 MG IV ×4 (02:04→19:32)
--- NOTE | 2024-12-13 03:38 | PTCARENOTE ---
Patient is refusing Levaquin PO. He wants to speak with his doctor in the morning.
[2024-12-13] MEDS: FLUSH (NSS) 2 FLUSH IV ×2 (03:46→19:33)
[2024-12-13] MEDS: SYNTHROID 75 MCG PO (06:17)
--- NOTE | 2024-12-13 10:02 | CM ---
CM met tammy Jessica outside of room. Identifies herself as POA. Her ph # [phone].
Pt appears to be sleeping in hospital bed.
Tammy explains pt recently discharged from [facility] with plan for palliative home visit today.
Tammy reports pt has increasing jaundice, intermittent confusion, and they would like to consider hospice at this time.
Offered choice of hospice agency and no preference. Message to [facility] laision supply and distribution manager. Referral sent via [facility].
CM will follow and assist.
--- NOTE | 2024-12-13 10:11 | HOSPNOTE ---
Addendum entered by Concetta Cueto RN 12/13/24 10:42:
Attending in agreement with monitoring over the weekend. He also has some more testing he would like to complete as well. Will follow, monitor over the weekend and reassess on Sunday for hospice plan.
Addendum entered by Concetta Cueto RN 12/13/24 10:38:
Spoke to tammy Bhatten. Reviewed inpatient hospice vs home hospice. Agreed that it would be ideal to monitor patient over the weekend to see how he does. Reevaluate on Sunday to see if he meets inpatient criteria vs home hospice. Aracely liked this
idea. Asked attending if we can monitor patient over the weekend and reassess Sunday. CM updated as well.
Original Note:
Hospice referral received. Tried to call carltonjoby Jessica but she did not answer and mail box is full. Sent a text so she knew who was trying to reach her and asked her to give a call back to discuss hospice. Also checking with attending if we are
thinking inpatient hospice vs home hospice as well. CM updated. More information to follow.
--- NOTE | 2024-12-13 10:49 | W.PN.HOSP.TC ---
Today's Communication/Plan
-
Continue with current treatments. Obtain plain x-ray of the abdomen.
Assessment / Plan
Assessment / Plan
End Stage Metastatic Lung Cancer with Worsening Liver Failure due to Liver Mets
-Admitted patient for comfort care
-cw morphine 2mg IV q1H prn with progression to morphine infusion if needed for pain/shortness of breath
- Hospice consulted
Bilateral Basilar Opacities, possible pneumonia
-Start empiric Levaquin
Chronic Hypoxic Respiratory Failure
-Continue supplemental oxygen
Abdominal pain -patient with progressive metastatic liver disease and in the prior CT also had lymphadenopathy and small ascites. With worsening liver failure and distended abdomen cannot rule out ascites. Clinically her abdomen is more tympanic.
Obtain a plain x-ray and if no distention or ileus we will get an ultrasound of the abdomen to quantify ascites and tap for symptom control.
Coronary Artery Disease s/p Cardiac Stent
Peripheral Arterial Disease s/p Right Iliac Stent
-Antiplatelets stopped due to profound thrombocytopenia
Essential Hypertension
-BP running on the low side
-Hold metoprolol
Hyperlipidemia
-Stop Zetia
Hypothyroidism
-Continue levothyroxine
DVT proph contraindicated due to edema and thrombocytopenia
Code Status: DNR/DNI
Had long discussion with the patient, twin brother, niece Aracely who is the POA at bedside.
They understand the disease process and the burden of it now. They would like to see hospice team and consider hospice for symptom control.
Total time spent on today's encounter was 52 minutes which included time spent in counseling the patient/family regarding diagnosis and treatment plan as listed above, goals of care, and symptom management. Case was discussed with nursing staff,
specialists, and care coordinators/case management. All labs and imaging personally reviewed by me. Remainder the time spent in detailed review of previous records, lab data, imaging, and other medical provider documentation.
Anticipated Discharge: > 48 hours
Subjective/Interval History
-
Date of Service: December 13, 2024
Patient with ongoing abdominal pain mostly in the lower abdomen. He has associated nausea with no vomiting. Had small bowel movement yesterday. He was recently put on low-dose narcotic pain regiment at [facility] per family.
He always had some shortness of breath but on the day of calling 911 he had short of breath with minimal exertion and he could not recover. No chest pain.
Last chemotherapy apparently a month ago. His oncology care is at [facility]-apparently felt not a candidate for further chemotherapy , advised hospice which the patient and the family wants to consider.
Objective Data
-
Vital Signs:
Vital Signs
Temp Pulse Resp BP Pulse Ox
98.7 F 88 16 97/51 91
12/13/24 07:33 12/13/24 07:33 12/13/24 07:33 12/13/24 07:33 12/13/24 07:33
Physical Exam
-
General: No Apparent Distress
HEENT: Negative Anicteric
Respiratory: Non Labored Respirations; Negative Wheezes, Crackles or Accessory Resp Muscle Use
Cardiac: Regular Rhythm and S1/S2
GI: Soft, Normal Bowel Sounds, Tender (lower abdo but no rebound or guarding) and Distended
Neuro: AO x 3
Psych: Calm
Data Reviewed
-
Labs: Labs Reviewed by me
[2024-12-13] MEDS: DUPHALAC/CHRONULAC 20 GRAMS PO (14:47)
[2024-12-14] MEDS: SYNTHROID 75 MCG PO (05:17)
[2024-12-14 07:15] VITALS: BP 101/53
[2024-12-14] MEDS: MORPHINE SULFATE 2 MG IV ×3 (11:28→20:55)
--- NOTE | 2024-12-14 14:21 | W.PN.HOSP.TC ---
Today's Communication/Plan
-
cw comfort measures
Hospice dispo depending on med need for symptom control
Assessment / Plan
Assessment / Plan
End Stage Metastatic Lung Cancer with Worsening Liver Failure due to Liver Mets
-Admitted patient for comfort care
-cw morphine 2mg IV q1H prn with progression to morphine infusion if needed for pain/shortness of breath
- Hospice consulted
Bilateral Basilar Opacities, possible pneumonia
-Started empiric Levaquin pending hospice dispo
Chronic Hypoxic Respiratory Failure
-Continue supplemental oxygen
Abdominal pain -patient with progressive metastatic liver disease and in the prior CT also had lymphadenopathy and small ascites. With worsening liver failure and distended abdomen cannot rule out ascites. Clinically her abdomen is more tympanic.
plain x-ray non obstructive bowel gas pattern. Pain better today. Hold on US abdomen as clinically no ascites
Coronary Artery Disease s/p Cardiac Stent
Peripheral Arterial Disease s/p Right Iliac Stent
-Antiplatelets stopped due to profound thrombocytopenia
Essential Hypertension
-BP running on the low side
-Hold metoprolol
Hyperlipidemia
-Stop Zetia
Hypothyroidism
-Continue levothyroxine
DVT proph contraindicated due to edema and thrombocytopenia
Code Status: DNR/DNI
12/14
Had long discussion with the patient, twin brother, niece Aracely who is the POA at bedside.
They understand the disease process and the burden of it now. They would like to see hospice team and consider hospice for symptom control.
DW Aracely POA at bedside today
CW comfort is the goal . CW comfort measures
Anticipated Discharge: Within 24 hours
Subjective/Interval History
-
Date of Service: December 14, 2024
Breathing and abdo pain better with IV morphine.
Eat a bit.
Objective Data
-
Vital Signs:
Vital Signs
Temp Pulse Resp BP Pulse Ox
97.8 F 86 19 101/53 93
12/14/24 07:15 12/14/24 07:15 12/14/24 07:15 12/14/24 07:15 12/14/24 07:15
I&O
12/13/24 12/14/24 12/15/24
06:59 06:59 06:59
Intake Total 720 / 720
Balance 720 / 720
Physical Exam
-
Respiratory: Non Labored Respirations; Negative Accessory Resp Muscle Use
GI: Soft, Nontender, Normal Bowel Sounds and Distended (tympanic)
Neuro: AO x 3
Psych: Calm
--- NOTE | 2024-12-14 14:42 | HOSPNOTE ---
Spoke to attending, patient needed 4 ivp doses of morphine yesterday to get comfortable. toady he has not needed any and is comfortable. per attending we will monitor his need today and reassess tomorrow morning for inpatient hospice vs home
hospice. Niece is aware and in agreement. Emotional support provided.
[2024-12-14 19:15] VITALS: BP 103/59
[2024-12-15] MEDS: MORPHINE SULFATE 2 MG IV ×8 (00:49→11:39)
[2024-12-15] MEDS: MORPHINE 100 IV (03:27)
[2024-12-15] MEDS: SYNTHROID PO (04:24)
[2024-12-15 07:15] VITALS: BP 82/37
--- NOTE | 2024-12-15 08:40 | W.DCSUMMARY ---
Discharge Summary
Discharge Data
Date of Admission: 12/12/24
Date of Discharge: 12/15/24
-
Pending Results: No
Hospital Course
Discharge diagnosis:
End Stage Metastatic Lung Cancer with Worsening Liver Failure due to Liver Mets
Severe jaundice due to hyperbilirubinemia
Bilateral Basilar Opacities, possible pneumonia
Chronic Hypoxic Respiratory Failure
Abdominal pain
Coronary Artery Disease s/p Cardiac Stent
Peripheral Arterial Disease s/p Right Iliac Stent
Essential Hypertension
Hospital course:
64-year-old male with a past medical history of metastatic lung cancer with known metastases to the liver and bone, was admitted for worsening shortness of breath, abdominal pain, and jaundice. Patient declined hospice at home, and was seen by
palliative care. However, his symptoms worsened, and he presented to the emergency room. Patient was seen by hospice this admission. Patient's niece/power of consumer attorney agreed to inpatient hospice. Patient was seen in conjunction with the hospice
nurse. He was treated with an IV morphine drip, and received comfort care measures only. He is discharged to general inpatient hospice.
Disposition: Inpatient hospice
Discharge Plan
-
Patient Disposition: Hospice - Inpatient DH
Discharge Orders:
Discharge Patient (As Directed); Ordered 12/15/24
Ordered By: Garrison Treviño
Discharge Date and Time
Discharge Date/Time: 12/15/24 12:22
Print Language: [place]LAND[place]
[2024-12-15] MEDS: LEVSIN ORAL DROPS 0.125 MG SL (10:44)
--- NOTE | 2024-12-15 11:23 | HOSPNOTE ---
Patient will be admitted on hospice services and will remain inpatient for pain management. Admissions was called to begin hospice chart.
== END 2024-12-15 12:22 | disposition hospice, inpatient (51) | DRG 180 ==
LOC: 2 NORTH 23:47
PROVIDERS: ADMITTING PHYSICIAN Hospitalist; ATTENDING PHYSICIAN Family Medicine; EMERGENCY PHYSICIAN Student in an Organized Health Care Education/Training Program; FAMILY PHYSICIAN Family Medicine
DX: C34.90 Malignant neoplasm of unspecified part of unspecified bronchus or lung (principal); J18.9 Pneumonia, unspecified organism; C78.7 Secondary malignant neoplasm of liver and intrahepatic bile duct; J96.11 Chronic respiratory failure with hypoxia; C79.51 Secondary malignant neoplasm of bone; Z87.891 Personal history of nicotine dependence; Z51.5 Encounter for palliative care; K72.90 Hepatic failure, unspecified without coma; I10 Essential (primary) hypertension; E78.5 Hyperlipidemia, unspecified; E03.9 Hypothyroidism, unspecified; Z66 Do not resuscitate; I25.10 Atherosclerotic heart disease of native coronary artery without angina pectoris; I73.9 Peripheral vascular disease, unspecified; D69.6 Thrombocytopenia, unspecified
CPT/HCPCS: 71046; 74018; 80053; 82248; 83880; 84484; 85025; 93005; 96374; 99285

== ENCOUNTER 2024-12-15 12:23 | Inpatient (IN) | payer OTHER, SELFPAY ==
--- NOTE | 2024-12-15 13:38 | ADM.HSP ---
Admission - Hospice
History of Present Illness
64-year-old male with a past medical history of metastatic lung cancer with known metastases to the liver and bone, was initially admitted to [facility] on 12/12/2024 for worsening shortness of breath, abdominal pain, and jaundice. Patient
declined hospice at home, and was seen by palliative care. However, his symptoms worsened, and he presented to the emergency room. Patient was seen by hospice this admission. Patient's niece/power of sewing machine operator semiautomatic agreed to inpatient hospice. Patient
was seen in conjunction with the hospice nurse. He was treated with an IV morphine drip, and received comfort care measures only. He is now admitted to general inpatient hospice.
Reason for Hospice Admission
Comfort care measures only
Review of Systems
Unable to obtain full review of systems at this time due to: Unresponsive
History Source: Family and Nursing
Physical Exam
General: Comfortable
Respiratory: Rhonchi
Cardiology: Regular Rhythm
GI: Nondistended
Musculoskeletal: Other
Skin: Other (Severely jaundiced)
Neuro: Other (Somnolent)
Psych: Calm
Assessment/Medication Plan
Generic Name Dose Route Start Last Admin
Trade Name Freq PRN Reason Stop Dose Admin
Acetaminophen 650 mg 12/15/24 12:56
Acetaminophen 650 Mg Rectal Suppository RECTAL 01/12/25 12:55
Q4HPRN PRN
mild pain, TOPETE, or temp >100.4F
Acetaminophen 650 mg 12/15/24 12:56
Acetaminophen 325 Mg Tablet PO 01/12/25 12:55
Q4HPRN PRN
mild pain, TOPETE, or temp >100.4F
Bisacodyl 10 mg 12/15/24 12:56
Bisacodyl 10 Mg Rectal Suppository RECTAL 01/12/25 12:55
DAILYPRN PRN
if no BM for 3 days
Glycopyrrolate 0.2 mg 12/15/24 12:56
Glycopyrrolate 0.2 Mg/Ml Vial IV 01/12/25 12:55
Q4HPRN PRN
excessive secretions
Hyoscyamine Sulfate 0.125 mg 12/15/24 12:56
Hyoscyamine Sulfate 0.125 Mg/Ml In Oral Syringe SL 01/12/25 12:55
Q4HPRN PRN
excessive secretions
Morphine Sulfate/Sodium Chloride 100 mg in 100 mls @ 0 mls/hr 12/15/24 13:00
Morphine IV
PER PROTOCOL JUSTICE
Protocol
Per Protocol
Lorazepam 0.5 mg 12/15/24 12:56
Lorazepam 2 Mg/Ml Vial IV 01/12/25 12:55
Q2HPRN PRN
anxiety
Protocol
Morphine Sulfate 0 mg 12/15/24 12:56
Morphine 2 Mg/Ml Syringe IV 12/29/24 12:55
[id number] PRN
moderate-severe pain / dyspnea
Protocol
Ondansetron HCl 4 mg 12/15/24 12:56
Ondansetron 4 Mg/2 Ml Vial IV 01/12/25 12:55
Q6HPRN PRN
nausea/vomiting
Prochlorperazine Edisylate 5 mg 12/15/24 12:56
Prochlorperazine 10 Mg/2 Ml Vial IV 01/12/25 12:55
Q6HPRN PRN
nausea/vomiting
Sodium Chloride 0 flush 12/15/24 14:00
Sodium Chloride 0.9% (Flush) Syringe IV 01/12/25 13:59
PER PROTOCOL JUSTICE
--- NOTE | 2024-12-15 13:38 | W.PN.DEATH ---
Pronouncement of
-
Called to see patient to pronounce.
No spontaneous heart tones or respirations noted.
Patient not responsive to verbal stimuli.
Patient is pronounced .
Time of : 13:11
Date of : 12/15/24
Cause of : End Stage Metastatic Lung Cancer with Worsening Liver Failure due to Liver Metastases
Family Notified: Yes
--- NOTE | 2024-12-15 14:08 | CHAP ---
Emotional and spiritual support provided. End of life prayers shared. Attempted to get a food preservation scientist for [facility], but Mr. Schultz before the food preservation scientist could come.
--- NOTE | 2024-12-15 14:53 | PTCARENOTE ---
Pt lost pulse at 1311. Hospitalist made aware and came to bedside. Pastoral care also at bedside.
--- NOTE | 2024-12-15 16:54 | W.DCSUMMARY ---
Discharge Summary
Discharge Data
Date of Admission: 12/15/24
Date of Discharge: 12/15/24
-
Pending Results: No
Hospital Course
Discharge diagnosis:
End Stage Metastatic Lung Cancer with Worsening Liver Failure due to Liver Mets
Severe jaundice due to hyperbilirubinemia
Bilateral Basilar Opacities, possible pneumonia
Chronic Hypoxic Respiratory Failure
Abdominal pain
Coronary Artery Disease s/p Cardiac Stent
Peripheral Arterial Disease s/p Right Iliac Stent
Essential Hypertension
Hospital course:
64-year-old male with a past medical history of metastatic lung cancer with known metastases to the liver and bone, was initially admitted to [facility] on 12/12/2024 for worsening shortness of breath, abdominal pain, and jaundice due to his
metastatic cancer. Patient declined hospice at home, and was seen by palliative care. However, his symptoms worsened, and he presented to the emergency room. Patient was seen by hospice this admission. Patient's niece/power of ip attorney agreed to
inpatient hospice. Patient was admitted to inpatient hospice, and received comfort care measures with an IV morphine drip. He peacefully on 12/15/2024 at 13:11. Family was at bedside, condolences offered.
Discharge Plan
-
Referrals:
UNKNOWN - PT DOES,NOT KNOW [Family Provider] -
Prescriptions:
No Action
metoprolol succinate [Toprol XL] 50 mg Tablet Extended Release 24 Hr
25 mg PO BID
levothyroxine [Synthroid] 75 mcg Tablet
75 mcg PO DAILY
lorazepam 0.5 mg Tablet
0.5 mg PO BIDPRN PRN (Reason: anxiety)
Patient Comments:
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
ezetimibe [Zetia] 10 mg Tablet
10 mg PO DAILY
lactulose 10 gram/15 mL Solution
20 g PO QPM PRN (Reason: Constipation)
magnesium oxide 400 mg magnesium Tablet
400 mg PO DAILY
sennosides [senna] 8.6 mg Tablet
8.6 mg PO BID PRN (Reason: CONSTIPATION)
oxycodone 5 mg Tablet
5 mg PO Q4H PRN (Reason: pain)
Discharge Date and Time
Print Language: SLOVENIAN
== END 2024-12-15 13:11 | disposition expired | DRG 951 ==
LOC: 2 NORTH 12:23
PROVIDERS: ADMITTING PHYSICIAN Family Medicine
DX: Z51.5 Encounter for palliative care (principal); J96.11 Chronic respiratory failure with hypoxia; C78.7 Secondary malignant neoplasm of liver and intrahepatic bile duct; C34.90 Malignant neoplasm of unspecified part of unspecified bronchus or lung; K72.90 Hepatic failure, unspecified without coma; I10 Essential (primary) hypertension; I25.10 Atherosclerotic heart disease of native coronary artery without angina pectoris; I73.9 Peripheral vascular disease, unspecified; Z95.5 Presence of coronary angioplasty implant and graft